=== PATIENT | female | born 1955 | race African-American/Black ===

== ENCOUNTER 2024-11-30 12:18 | Outpatient (CLI) | payer OTHER, MEDICARE, SELFPAY ==
--- NOTE | ~2024-11-30 | XR_ITS ---
EXAMINATION: XR chest 2V DATE: 11/30/2024 13:16 INDICATION: Pedal edema TECHNIQUE: PA and lateral views of the chest were obtained. COMPARISON: None FINDINGS: Mild increased interstitial pattern at the bilateral lung bases consistent with mild pulmonary edema. No focal airspace opacities, pleural effusion or pneumothorax. The cardiomediastinal silhouette is n ormal. Mild to moderate thoracic spondylosis with minimal anterior wedging of a few mid thoracic vert ebral bodies. IMPRESSION: 1. Mild interstitial pattern at the bilateral lung bases consistent most likely related mild pulmonar y edema with differential including atelectasis or pneumonia. Reviewed, dictated and finalized at location A. IMPRESSION: 1. Mild interstitial pattern at the bilateral lung bases consistent most likely related mild pulmonary edema with differential including atelectasis or pneumo abad.
--- OUTSIDE RECORDS SUMMARY | 2024-11-30 12:44 | XMS_ITS | Clinical Summary ---
Author Organization [facility] Address [address] [place] [address] Care Team Providers Care Drum Drier Name Role Phone None, Provider MD Primary Care Provider Unavaila ble Allergies No known active allergies Medications HYDROcodone-acet aminophen (NORCO) 5-325 MG tabletIndication s:Acute Pain < 3 Day Supply Take 1 tablet by mouth every 8 (eight) hours as needed for Pain. 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 Gender Identity Not on file Sexual Orientation Not on file Last Filed Vital Signs Vital Sign Reading Time Taken Comments Blood Pressure 147/87 07/27/2023 1:30 PM COMMUNICATIONS MAINTAINER Pulse 90 07/27/2023 1:30 PM COMMUNICATIONS MAINTAINER Temperature 36.3 C (97.3 F) 07/27/2023 2:08 PM COMMUNICATIONS MAINTAINER Respiratory Rate 16 07/27/2023 1:30 PM COMMUNICATIONS MAINTAINER Oxygen Saturation 100% 07/27/2023 1:30 PM COMMUNICATIONS MAINTAINER Inhaled Oxygen Concentration - - Weight 95.3 kg (210 lb) 07/27/2023 1:30 PM COMMUNICATIONS MAINTAINER Height 175.3 cm (5' 9 ) 07/27/2023 1:30 PM COMMUNICATIONS MAINTAINER Body Mass Index 31.01 07/27/2023 1:30 PM COMMUNICATIONS MAINTAINER Plan of Treatment Health Maintenance Due Date Last Done Comments Colorectal Cancer Screening Colonoscopy (10 Years) 1956 Hepatitis C 1974 DTaP, Tdap and Td Vaccines ( 1 - Tdap) 1975 Pneumococcal Vaccine: 50+ Years (1 of 2 - PCV) 1975 Mammogram Screening 1996 Zoster Vaccines (1 of 2) 2006 Dexa Scan (General) 2021 COVID-19 Vaccine (3 - 2023-2 5 season) 2024 12/31/2020, 12/03/2020 RSV Immunization or 60+ Years (1 - 1-dose 75+ series) 2031 Meningococcal B Vaccine Aged Out No l onger eligible based on patient's age to complete this topic Meningococcal Vaccine Aged Out No britt solomon eligible based on patient's age to complete this topic RSV Immunizations Under 20 Months Aged Out No longer eligible b ased on patient's age to complete this topic Insurance [employer] Care Teams Drum Drier Relationship Specialty Start Date End Date None, Provider, MD PCP - General UNKNOWN PHYSICIAN SPECIALTY 07/27/23
--- OUTSIDE RECORDS SUMMARY | 2024-11-30 12:44 | XMS_ITS | Data Portability ---
Author Organization [place] [facility], Main Office Address [address] [place] [address] Care Team Providers Care Access Tech Name Role Phone SAV CORONADO Primary Care Provider SAV CORONADO Referring Provider Assessment Encounter Date Assessment Date Assessment LastModified by Organization Details LastModified Time 01/07/2023 01/07/2023 Assessment: Nicotine smoke: 1 ppd 1974-present (quit 4 years in between) =44 pack years Cough Dyspnea RML nodule Atelectasis Plan: The following were reviewed and explained to the patient: primary care/referral note Chest 1 view 05/27/22 emphysema Chest 2 views 12/14/22 pulmonary [address] congestion Chest CT 12/14/22 BLL atelectasis, RML atelectasis/pneumo abad, 3 mm RML nodule Incentive spirometer x 5 minutes every 2 hours while awake to reverse and prevent further atelectasis. Nicotine cessation counseling provided for 4 minutes. [place] for quitting nicotine include getting ready, getting support and encouragement, learning new skills and behaviors and being prepared to handle slips. Tips for dealing with cravings provided. Prevention of subsequent illnesses from nicotine addiction discussed. Comorbidities include but are not limited to hypertension, cerebrovascular disease, coronary heart disease, congestive heart failure, hyperlipidemia, COPD/asthma, peptic ulcer disease, esophagitis/gastri tis, and osteoporosis. Therapy options offered include: Quitting by total abstinence Receiving nicotine replacement therapy Undergoing hypnosis Filling a bupropion or varenicline prescription Enrolling in Quit For Life program Registering at [email or web address] Making a call to 4-414-BHUX-NOW ( ). A strong, clear, personalized message was given to the patient to quit smoking. The patient was urged to set a quit date. We discussed patient's barriers to quitting and I will be of assistance when patient is ready to quit. I encouraged patient to inform friends and family of plans to quit with a request for support. I encouraged the patient to remove all cigarettes from the environment. We reviewed any previous quit attempts and lessons learned from them. I encouraged total abstinence from smoking and advised the patient that drinking alcohol and/or associating with other smokers are associated with failure or relapse. Patient can enroll in [facility]'s smoking cessation class through Iris Cantu RN at . Enrollment is free and classes are held every wednesday of the month from 1:30 pm to 2:30 pm at the conference room next to the cafeteria on the ground floor. Differential diagnoses for pulmonary nodule: 1. malignant tumor 2. benign tumor 3. inflammatory processes 4. infectious process (viral, atypical bacterial, fungal, atypical mycobacterial) The Fleischner Society pulmonary nodule recommendations below pertain to the follow-up and management of indeterminate pulmonary nodules detected incidentally on CT and are published by the Fleischner Society. The guideline does not apply to lung cancer screening, patients younger than 35 years, or patients with a history of primary cancer or immunosuppression. These recommendations reflect the 2017 revision 4, which supersedes prior versions published in 2005 and 2013. Single solid nodule <6 mm (<100 mm3) *low-risk patients: no routine follow-up required *high-risk patients: optional CT at 12 months (particularly with suspicious nodule morphology and/or upper lobe location) Single solid nodule 6-8 mm (100-250 mm3) *low-risk patients: CT at 6-12 months, then consider CT at 18-24 months *high-risk patients: CT at 6-12 months, then CT at 18-24 months Single solid nodule >8 mm (>250 mm3) *low-risk and high-risk patients: consider CT at 3 months, PET/CT, or tissue sampling Cough/Dyspnea workup will be done as follows: Respiratory allergen panel for [facility] Serum IgE Serum total IgG, IgG1, IgG2, IgG3, IgG4 Uroso-3-[id number] n phenotype and level TB stimulated gamma interferon B-type natriuretic peptide (BNP) Eosinophil count Complete pulmonary function testing (PFT) Continue albuterol HFA as needed. Minimize albuterol nebs as needed. Minimize ipratropium nebs as needed. Continue Anoro Ellipta once daily. The patient does not know how to accurately administer the inhalers. Today, the patient was shown how to take these medications. The proper technique for delivering these medications was instructed. The patient expressed a clear understanding and demonstrated back how to use these medications. Without the proper technique, the patient will not reap the benefits of these medications as the contents will not reach the lower airways as intended to be. Adherence to therapy is advocated. Nonadherence may lead to treatment failure, further progression of the condition, and other complications. Hospitals admissions are often the result of individuals not taking prescription medications accurately. Alternatively, greater adherence to medication regimens have shown to lower rates of hospitalization and decrease total medical costs in patients with chronic medical conditions. Advocated influenza vaccination annually and pneumonia vaccination ROSS. Advocated weight loss through diet and exercise. Patient's ideal body weight according to height and gender is up to 155 lbs. Encouraged patient to adjust caloric intake to maintain/achieve ideal body weight, emphasizing on fruits, vegetables, whole grains, and fat-free or low-fat products. These include lean meats, poultry, fish, beans, eggs, and nuts and foods that are low in saturated fats, trans-fats, cholesterol, salt (sodium), and glycemic index. Stressed the importance of regular exercise up to the patient's capacity limits. In this case, we recommend 20 min daily walking, 2 days a week of resistance training. Patient to monitor BP daily and bring records to PCP for further management. Follow-up: 1 week after PFT Not available 01/07/2023 16:00:42 03/10/2023 03/10/2023 Assessment: Nicotine smoke: 1 ppd 1974-present (quit 4 years in between) =44 pack years Mod COPD 3 mm RML nodule Atelectasis Elevated BNP Plan: The following were reviewed and explained to the patient: Chest 1 view 05/27/22 emphysema Chest 2 views 12/14/[address] pulmonary [address] congestion Chest CT 12/14/22 BLL atelectasis, RML atelectasis/pneumo abad, 3 mm RML nodule Lab data 01/07/23 elevated BNP PFT 03/10/23 FEV1 1.11 L (54%) Continue incentive spirometer x 5 minutes every 2 hours while awake to reverse and prevent further atelectasis. Nicotine cessation counseling provided. [place] for quitting nicotine include getting ready, getting support and encouragement, learning new skills and behaviors and being prepared to handle slips. Tips for dealing with cravings provided. Prevention of subsequent illnesses from nicotine addiction discussed. Comorbidities include but are not limited to hypertension, cerebrovascular disease, coronary heart disease, congestive heart failure, hyperlipidemia, COPD/asthma, peptic ulcer disease, esophagitis/gastri tis, and osteoporosis. Therapy options offered include: Quitting by total abstinence Receiving nicotine replacement therapy Undergoing hypnosis Filling a bupropion or varenicline prescription Enrolling in Quit For Life program Registering at [email or web address] Making a call to 3-951-QRBP-NOW ( ). A strong, clear, personalized message was given to the patient to quit smoking. The patient was urged to set a quit date. We discussed patient's barriers to quitting and I will be of assistance when patient is ready to quit. I encouraged patient to inform friends and family of plans to quit with a request for support. I encouraged the patient to remove all cigarettes from the environment. We reviewed any previous quit attempts and lessons learned from them. I encouraged total abstinence from smoking and advised the patient that drinking alcohol and/or associating with other smokers are associated with failure or relapse. Patient can enroll in [facility]'s smoking cessation class through Iris Cantu RN at . Enrollment is free and classes are held every wednesday of the month from 1:30 pm to 2:30 pm at the conference room next to the cafeteria on the ground floor. Differential diagnoses for pulmonary nodule: 1. malignant tumor 2. benign tumor 3. inflammatory processes 4. infectious process (viral, atypical bacterial, fungal, atypical mycobacterial) The Fleischner Society pulmonary nodule recommendations below pertain to the follow-up and management of indeterminate pulmonary nodules detected incidentally on CT and are published by the Fleischner Society. The guideline does not apply to lung cancer screening, patients younger than 35 years, or patients with a history of primary cancer or immunosuppression. These recommendations reflect the 2017 revision 4, which supersedes prior versions published in 2005 and 2013. Single solid nodule <6 mm (<100 mm3) *low-risk patients: no routine follow-up required *high-risk patients: optional CT at 12 months (particularly with suspicious nodule morphology and/or upper lobe location) Single solid nodule 6-8 mm (100-250 mm3) *low-risk patients: CT at 6-12 months, then consider CT at 18-24 months *high-risk patients: CT at 6-12 months, then CT at 18-24 months Single solid nodule >8 mm (>250 mm3) *low-risk and high-risk patients: consider CT at 3 months, PET/CT, or tissue sampling Repeat chest CT one week before return. Pulmonary rehabilitation may be included in the management of patients with chronic obstructive pulmonary disease (COPD). For respiratory diseases different from COPD, there have been no formal statements regarding patient selection. Pulmonary rehabilitation consists of assessment, exercise, education, and emotional support. It covers the goals of rehabilitation, the techniques of breathing, the necessity of nicotine cessation, the strategies to deal with panic attacks, the rationale of pulmonary medications, and the importance of nutrition. As the patient learns to live with his/her pulmonary condition through exercise and education, the patient will regain confidence with his/her abilities and feel improvement in his/her overall quality of life. The patient's FEV1 is 54%. The patient will be enrolled in pulmonary rehabilitation pending insurance coverage. General concepts of pulmonary rehabilitation were explained. Educational video was shown. Continue albuterol HFA as needed. Minimize albuterol nebs as needed. Minimize ipratropium nebs as needed. Resume Anoro Ellipta 62.5/25 mcg 1 inhalation daily. The patient does not know how to accurately administer the inhalers. Today, the patient was shown how to take these medications. The proper technique for delivering these medications was instructed. The patient expressed a clear understanding and demonstrated back how to use these medications. Without the proper technique, the patient will not reap the benefits of these medications as the contents will not reach the lower airways as intended to be. Adherence to therapy is advocated. Nonadherence may lead to treatment failure, further progression of the condition, and other complications. Hospitals admissions are often the result of individuals not taking prescription medications accurately. Alternatively, greater adherence to medication regimens have shown to lower rates of hospitalization and decrease total medical costs in patients with chronic medical conditions. Advocated influenza vaccination annually and pneumonia vaccination ROSS. Advocated weight loss through diet and exercise. Patient's ideal body weight according to height and gender is up to 155 lbs. Encouraged patient to adjust caloric intake to maintain/achieve ideal body weight, emphasizing on fruits, vegetables, whole grains, and fat-free or low-fat products. These include lean meats, poultry, fish, beans, eggs, and nuts and foods that are low in saturated fats, trans-fats, cholesterol, salt (sodium), and glycemic index. Stressed the importance of regular exercise up to the patient's capacity limits. In this case, we recommend 20 min daily walking, 2 days a week of resistance training. Patient to monitor BP daily and bring records to PCP for further management. Follow-up: 1 week after 2-D echocardiogram and chest CT Not available 03/10/2023 11:07:29 08/12/2023 08/12/2023 Assessment: Ex-nicotine smoke: 1 ppd [id number] (quit 4 years in between) =45 pack years Atelectasis 3 mm RML nodule Mod COPD PASP 51 mmHg Right HFpEF 65% Plan: The following were reviewed and explained to the patient: Chest 1 view 05/27/22 emphysema Chest 2 views 12/14/22 pulmonary vascular congestion Chest 1 view 08/03/[address] 12/14/22 BLL atelectasis, RML atelectasis/pneumo abad, 3 mm RML nodule 2-D echocardiogram 12/14/22 EF 65%, PASP 51 mmHg Lab data 01/07/23 elevated BNP PFT 03/10/23 FEV1 1.11 L (54%) [facility] discharge summary 07/19/23 [facility] discharge summary 08/07/[address] Kushal Angulo of [facility] as scheduled on 08/17/23 at 9 am for consultation. Continue incentive spirometer x 5 minutes every 2 hours while awake to reverse and prevent further atelectasis. Differential diagnoses for pulmonary nodule: 1. malignant tumor 2. benign tumor 3. inflammatory processes 4. infectious process (viral, atypical bacterial, fungal, atypical mycobacterial) The Fleischner Society pulmonary nodule recommendations below pertain to the follow-up and management of indeterminate pulmonary nodules detected incidentally on CT and are published by the Fleischner Society. The guideline does not apply to lung cancer screening, patients younger than 35 years, or patients with a history of primary cancer or immunosuppression. These recommendations reflect the 2017 revision 4, which supersedes prior versions published in 2005 and 2013. Single solid nodule <6 mm (<100 mm3) *low-risk patients: no routine follow-up required *high-risk patients: optional CT at 12 months (particularly with suspicious nodule morphology and/or upper lobe location) Single solid nodule 6-8 mm (100-250 mm3) *low-risk patients: CT at 6-12 months, then consider CT at 18-24 months *high-risk patients: CT at 6-12 months, then CT at 18-24 months Single solid nodule >8 mm (>250 mm3) *low-risk and high-risk patients: consider CT at 3 months, PET/CT, or tissue sampling Repeat chest CT ROSS. Pulmonary rehabilitation may be included in the management of patients with chronic obstructive pulmonary disease (COPD). For respiratory diseases different from COPD, there have been no formal statements regarding patient selection. Pulmonary rehabilitation consists of assessment, exercise, education, and emotional support. It covers the goals of rehabilitation, the techniques of breathing, the necessity of nicotine cessation, the strategies to deal with panic attacks, the rationale of pulmonary medications, and the importance of nutrition. As the patient learns to live with her pulmonary condition through exercise and education, the patient will regain confidence with her abilities and feel improvement in her overall quality of life. The patient's FEV1 is 54%. The patient will be re-enrolled in pulmonary rehabilitation pending insurance coverage. General concepts of pulmonary rehabilitation were explained. Continue albuterol HFA as needed. Discontinue albuterol nebs as needed. Discontinue ipratropium nebs as needed. Change Anoro Ellipta 62.5/25 mcg to Trelegy 100/62.5/25 mcg 1 inhalation daily. The patient does not know how to accurately administer the inhalers. Today, the patient was shown how to take these medications. The proper technique for delivering these medications was instructed. The patient expressed a clear understanding and demonstrated back how to use these medications. Without the proper technique, the patient will not reap the benefits of these medications as the contents will not reach the lower airways as intended to be. Adherence to therapy is advocated. Nonadherence may lead to treatment failure, further progression of the condition, and other complications. Hospitals admissions are often the result of individuals not taking prescription medications accurately. Alternatively, greater adherence to medication regimens have shown to lower rates of hospitalization and decrease total medical costs in patients with chronic medical conditions. Advocated influenza vaccination annually and pneumonia vaccination ROSS. Advocated weight loss through diet and exercise. Patient's ideal body weight according to height and gender is up to 155 lbs. Encouraged patient to adjust caloric intake to maintain/achieve ideal body weight, emphasizing on fruits, vegetables, whole grains, and fat-free or low-fat products. These include lean meats, poultry, fish, beans, eggs, and nuts and foods that are low in saturated fats, trans-fats, cholesterol, salt (sodium), and glycemic index. Stressed the importance of regular exercise up to the patient's capacity limits. In this case, we recommend 20 min daily walking, 2 days a week of resistance training. Patient to monitor BP daily and bring records to PCP for further management. Follow-up: [address] Not available 08/12/2023 12:05:57 Plan of Treatment Reminders Order Date Submit Date Provider Last Modified By Organization Details Last Modified Time Details Appointments None recorded. Lab alpha-1-ant itrypsin (aat) phenotype, serum [address] [facility] (Lab), [address] [place], [address], 10:15:13 BNP (B-type natriuretic peptide), serum or plasma [address] [facility] (Lab), [address] [place], [address], 21:42:11 ige, total, serum [address] (Lab), [address] [place], [address], 11:38:13 tb (M tuberculosi s), ifn-gamma shelli, blood [address] (Lab), [address] [place], [address], 11:38:14 eosinophil count, manual, blood (OBS) [address] (Lab), [address] [place], [address], 3 11:38:14 igg subclasses 1+2+3+4, serum [address] (Lab), [address] [place], [address], 3 11:38:14 respiratory allergen panel - [facility] a [address] (Lab), [address] [place], [address], 3 11:38:14 respiratory allergen panel - [facility] b [address] (Lab), [address] [place], [address], 3 11:38:15 Referral pulmonary rehab referral 2023 024 [email or web address] 25 [facility], [address] [place], [address], 4 14:17:28 pulmonary rehab referral 2022 023 [email or web address] 25 [facility], [address] [place], [address], 3 14:37:25 Procedures None recorded. Surgeries None recorded. Imaging CT, chest, w/o contrast - 3 mm RML nodule no auth required 2023 024 [facility] ([facility]), [address] [place], [address], 4 11:34:21 CT, chest, w/o contrast - 3 mm RML nodule no auth required 2022 023 [email or web address] 25 [facility] ([facility]), [address] [place], [address], 3 14:21:22 US, echocardiog laurence, transthorac ic, complete, w/ color flow - no auth required 2022 [email or web address] ([facility]), [address] [place], [address], 3 14:21:22 Medication Orders albuterol sulfate HFA 90 mcg/actuati on aerosol inhaler 2023 024 [id number], [address] [place], [place], [id number], 4 11:55:12 Trelegy Ellipta 100 mcg-62.5 mcg-25 mcg powder for inhalation 2023 024 [facility] #[id number], [address] [place], [place], [id number], 4 11:55:11 albuterol sulfate HFA 90 mcg/actuati on aerosol inhaler 2022 023 [id number], [address] [place], [place], [id number], 3 11:00:25 Anoro Ellipta 62.5 mcg-25 mcg/actuati on powder for inhalation 2022 023 [id number], [address] [place], [place], [id number], 3 14:24:56 Patient TargetsNo targets recorded. Patient Instructions Encounter Date Encounter Id Patient Instructions Last Modified By Organization Details Last Modified Time 01/07/2023 [id number] complete PFT w/ post bronchodilator spirometry* ADILSON Not available 03/11/2023 13:18:11 Reason for Referral Pulmonary Rehab Referral for Moderate chronic obstructive pulmonary disease Referring Physician: Marquise Narvaez, Pulmonary Disease, Encounter Date: 03/10/2023 Pulmonary Rehab Referral for Moderate chronic obstructive pulmonary disease Referring Physician: Marquise Narvaez, Pulmonary Disease, Encounter Date: 08/12/2023 Results Created Date Observation Date Name Description Value Unit Range Abnormal Flag Note LastModifiedBy Organization Detail LastModifiedTime 12/24/19 23 12/14/2022 XR, chest , 1 view No observ ation record ed. Not Available 2022 10:04:08 12/24/19 23 12/14/2022 CT, chest , w/o contr ast No observ ation record ed. Not Available 2022 10:04:08 12/24/19 23 12/14/2022 CT, head + brain , w/o contr ast No observ ation record ed. [facility] Not Available 2022 09:58:43 12/24/19 23 12/14/2022 elect rocar diogr am No observ ation record ed. [facility] Not Available 2022 09:58:43 12/24/19 23 06/04/2022 XR, chest , 1 view No observ ation record ed. Not Available 2022 13:02:06 12/25/19 23 06/04/2022 XR, chest , 1 view No observ ation record ed. Not Available 2022 09:59:12 03/10/20 23 03/10/2023 6 minut e walk test* No observ ation record ed. [facility] Not Available 2022 18:29:01 03/11/20 23 03/10/2023 compl ete PFT w/ post [facility] hodil ator lennie metry * No observ ation record ed. [facility] ([facility]) [address] [place], [address], 03/11/2023 13:18:11 08/19/19 24 08/19/2023 CT, chest , w/o contr ast No observ ation record ed. [facility] [address] [place], [address], 09/15/2023 11:34:21 Result Notes None recorded. Problems Name Problem SNOMED Code Status Onset Date Resolution Date Notes Provider Name and Address Organization Details Recorded Time Trochanter ic bursitis of left hip 1773524871514 03 Active 2019 Not Available [facility] 3 17:45:33 Solitary nodule of lung 102292055 Active Not Available [facility] 3 17:45:33 Atelectasi s 30691825 Active 2022 Marquise Narvaez MD [address], [address] , [facility] 3 15:41:52 Moderate chronic obstructiv e pulmonary disease 693966553 Active 2022 Marquise Narvaez MD [address], [address] , [facility] 3 10:51:23 Notes:Medical History: Eosin ophils 100/uL IgE 12 IU/mL AAT PiMM 211 mg% Nicotine use RML nodule Obesity Hyperlipidemia HFpEF 65% PASP 51 mmHg Vit D deficiency Right 4th rib fracture Left hip bursitis Procedure History: T&A 1968 Tubal ligation 1982 Tongue lesion excision 2012 Left 2nd hammer toe surgery 2013 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 Procedures Surgical History Date Name Laterality Status Provider Name and Address Organization Details Recorded Time Tonsillectomy completed Aleena Mendez MA [facility] 01/07/2023 15:26:59 procedure on tongue completed Aleena Mendez MA [facility] 01/07/2023 15:27:05 Tubal Ligation completed Aleena Mendez MA [facility] 01/07/2023 15:27:17 hammer toe operation completed Aleena Mendez MA [facility] 01/07/2023 15:27:25 Imaging Results Imaging Date Name Status LastModified by Organization Details LastModified Time 12/14/2022 XR, chest, 1 view completed Informa tion not available 12/23/2022 10:04:08 12/14/2022 CT, chest, w/o contrast completed Information not available 12/23/2022 10:04:08 12/14/2022 CT, head + brain, w/o contrast completed [facility] Information not available 12/23/2022 09:58:43 12/14/2022 electrocardiogram completed [facility] Informa tion not available 12/23/2022 09:58:43 06/04/2022 XR, chest, 1 view completed Informa tion not available 12/23/2022 13:02:06 06/04/2022 XR, chest, 1 view completed Informa tion not available 12/24/2022 09:59:12 03/10/2023 6 minute walk test* completed [facility] Infor mation not available 03/10/2023 18:29:01 03/10/2023 complete PFT w/ post bronchodilator spirometry* completed [facility] ([facility]) [address] [place], [address], 03/11/2023 13:18:11 08/19/2023 CT, chest, w/o contrast completed [address] [place], [address], 09/15/2023 11:34:21 Procedure Notes None recorded. Medical Equipment None Reported. Allergies Allergen ID Allergen Name Allergen Category Reaction Reaction Severity Criticality Documentation Date Start Date Code Code System Note Provider Name and Address Organization Details Recorded Time 47953 Breztri medicatio n Not available Not available Not available 01/07/2023 55202 25 RxNorm Aleena Mendez MA [facility], [employer] 3 15:17:25 03565 Anoro medicatio n insomnia swelling Not available Not available Not available 03/31/2023 02564 20 RxNorm Marquise Narvaez MD [address] [facility] [address], [place], [address] , [employer] 3 14:25:36 Medications Name Sig Start Date Stop Date Status Note LastModified by Organization Details LastModified Time furosemide 40 mg tablet TAKE 1 TABLET BY MOUTH EVERY DAY DIRECTED active Not Available Not Available No t Available albuterol sulfate 2.5 mg/3 mL (0.083 %) solution for nebulizatio n 08/12 completed Not Available Not Available Not Available atorvastati n 10 mg tablet 01/07 completed Not Available Not Available Not Available azithromyci n 250 mg tablet TAKE 1 TABLET BY MOUTH EVERY DAY 08/12 completed Not Available Not Available Not Available hydrocodone 5 mg-acetamin ophen 325 mg tablet TAKE 1 TABLET BY MOUTH EVERY 8 HOURS NEEDED FOR PAIN OR ACUTE PAIN active Not Available Not Available No t Available ondansetron HCl 4 mg tablet 01/07 completed Not Available Not Available Not Available prednisone 20 mg tablet TAKE 1 TABLET BY MOUTH EVERY DAY 08/12 completed Not Available Not Available Not Available Tamiflu 75 mg capsule active Not Available Not Available N ot Available peg-electro lyte solution 420 gram oral solution 01/07 completed Not Available Not Available Not Available prednisone 10 mg tablets in a dose pack Take 1 tab by mouth, 3 times a day for 3 daysTake 1 tab by mouth 2 times a day for 2 daysTake 1 tab by mouth once a day for 1 day 12/23 completed Not Available Not Available Not Available prednisone 50 mg tablet 12/23 completed Not Available Not Available Not Available promethazin e 25 mg tablet 01/07 completed Not Available Not Available Not Available nicotine 21 mg/24 hr daily transdermal patch 08/12 completed Not Available Not Available Not Available montelukast 10 mg tablet TAKE 1 TABLET BY MOUTH EVERY DAY active Not Available Not Available No t Available furosemide 20 mg tablet 03/24 completed Not Available Not Available Not Available methylpredn isolone 4 mg tablets in a dose pack 01/07 completed Not Available Not Available Not Available albuterol sulfate HFA 90 mcg/actuati on aerosol inhaler Inhale 1 puff every 4 hours by inhalatio n route as needed. 2023 active Not Available Not Available Not Avai lable doxycycline hyclate 100 mg tablet 08/12 completed Not Available Not Available Not Available ipratropium bromide 0.02 % solution for inhalation 08/12 completed Not Available Not Available Not Available amoxicillin 875 mg-potassiu m clavulanate 125 mg tablet TK 1 T PO Q 12 H FOR 7 DAYS 12/23 completed Not Available Not Available Not Available Spiriva with HandiHaler 18 mcg and inhalation capsules Inhale 1 capsule every day by inhalatio n route for 30 days. 01/07 completed Not Available Not Available Not Available Vitamin D Take 1 500 mg. tablet bid 2015 active Not Available Not Available Not Avai lable Oysco 500/D 500 mg-5 mcg (200 unit) tablet TK 1 T PO BID active Not Available Not Available No t Available Symbicort 160 mcg-4.5 mcg/actuati on HFA aerosol inhaler INHALE 2 PUFFS BY MOUTH TWICE DAILY DIRECTED 08/12 completed Not Available Not Available Not Available Anoro Ellipta 62.5 mcg-25 mcg/actuati on powder for inhalation INHALE 1 PUFF BY MOUTH EVERY DAY 03/31 completed Not Available Not Available Not Available Trelegy Ellipta 100 mcg-62.5 mcg-25 mcg powder for inhalation Inhale 1 puff every day by inhalatio n route. 2023 active Not Available Not Available Not Avai lable Breztri Aerosphere 160 mcg-9mcg-4. 8mcg/actuat ion HFA aerosol inhaler 01/07 completed Not Available Not Available Not Available Vitals Date Recorded Body weight Body mass index (BMI) Body height Body temperature Heart rate Systolic blood pressure Diastolic blood pressure Provider Name and Address Organization Details Last Updated DateTime 3 29592.7 3 g 29.3 kg/m2 175.26 cm 98.2 [degF] 82 /min 118 mm[Hg] 74 mm[Hg] Aleena Mendez MA [place] [employer] [facility] [employer] 3 15:30:48 Date Recorded Oxygen saturation Oxygen saturation in Arterial blood by Pulse oximetry Heart rate Respiratory rate Provider Name and Address Organization Details Last Updated DateTime 01/07/2023 93 % 93 % 82 /min 15 /min Marquise Narvaez MD [address] [facility], [place], [address], [employer] 3 16:04:15 Date Recorded Body height Body mass index (BMI) Body weight Body temperature Systolic blood pressure Diastolic blood pressure Provider Name and Address Organization Details Last Updated DateTime 3 175.26 cm 30.1 kg/m2 62277.8 4 g 98.9 [degF] 138 mm[Hg] 80 mm[Hg] Aleena Mendez MA [employer] 3 10:47:41 Date Recorded Oxygen saturation Oxygen saturation in Arterial blood by Pulse oximetry Respiratory rate Heart rate Heart rate Provider Name and Address Organization Details Last Updated DateTime 3 97 % 97 % 15 /min 86 /min 86 /min Marquise Narvaez MD [address] [facility] [address], [place], [address], [employer] 3 11:01:59 Date Recorded Body height Body mass index (BMI) Body weight Body temperature Heart rate Systolic blood pressure Diastolic blood pressure Provider Name and Address Organization Details Last Updated DateTime 4 175.26 cm 28.4 kg/m2 06985.7 4 g 98.78 [degF] 78 /min 128 mm[Hg] 78 mm[Hg] Aleena Mendez MA [facility] 4 11:25:12 Date Recorded Oxygen saturation Oxygen saturation in Arterial blood by Pulse oximetry Heart rate Respiratory rate Provider Name and Address Organization Details Last Updated DateTime 08/12/2023 95 % 95 % 78 /min 14 /min Marquise Narvaez MD [address] [employer], [place], [address], [employer] 4 12:04:35 Social History Question Answer Notes LastModified by Organizat ion Details LastModified Time Tobacco Smoking Status Former Smoker Aleena Mendez MA null, [facility] 08/12/2023 11:22:23 What Is Your Level Of Alcohol Consumption? None Information not available 01/07/2023 What Is Your Level Of Caffeine Consumption? Occasional Information not available 01/07/2023 In The 14 Days Before Symptom Onset, Have You Had Close Contact With A Laboratory-confir med COVID-19 While That Case Was Ill? No Information not available 01/07/2023 In The 14 Days Before Symptom Onset, Have You Had Close Contact With A Person Who Is Under Investigation For COVID-19 While That Person Was Ill? No Information not available 01/07/2023 What Type Of Diet Are You Following? REGULAR Information not available 01/07/2023 Do You Have An Electrostatic Air Filter? 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 No Information not available 01/07/2023 Do You Have A Humidifier? Yes Information not available 01/07/2023 Do You Have Moisture Problems In Your Home? No Information not available 01/07/2023 What Was The Date Of Your Most Recent Tobacco Screening? 08/12/2023 Information not available 08/12/2023 What Is Your Current Pack Years? 30ormorepackye ars Information not available 01/07/2023 Do You Have Any Pets? No Information not available 01/07/2023 Do You Use Your Seat Belt Or Car Seat Routinely? Yes Information not available 01/07/2023 Do You Have Smoke And Carbon Monoxide Detectors In Your Home? No Information not available 01/07/2023 Are You Passively Exposed To Smoke? Yes Information no t available 01/07/2023 How Much Tobacco Do You Smoke? No Information not available 08/12/2023 Do You Feel Stressed (tense, Restless, Nervous, Or Anxious, Or Unable To Sleep At Night)? [id number] Information not available 01/07/2023 Do You Use Any Illicit Or Recreational Drugs? No Information not available 01/07/2023 Do You Use Sunscreen Routinely? No Information not available 01/07/2023 Have You Recently Traveled Abroad? No Information not available 01/07/2023 Do You Have Any Dietary Restrictions? No Information not available 01/07/2023 Sex: Unknown Functional Status Question Answer Note LastModified by Organizat ion Details LastModified Time What is your exercise level? Occasional Information not available 01/07/2023 Mental Status None recorded. Family History Nothing Reported. Medical History No medical history recorded. Gynecological HistoryNo gynecological history recorded. Obstetrics History GPAL:G 0 P 0 0 0 0 Past Encounters Encounter ID Performer Location Encounter Start Date Encounter Closed Date Diagnosis/Indication Diagnosis SNOMED-CT Code Diagnosis ICD10 Code Diagnosis Note [id number] MD [place] [id number] 01/07/2023 14:57:52 01/11/2023 08:54:14 Atelectasis 68563581 J98.11 Smoker 70303645 F17.218 F17.219 Z87.891 Dyspnea on exertion 6084 5006 R06.09 R05.9 T78.40XA D89.9 [id number] MD [place] [id number] 03/10/2023 10:24:01 03/10/2023 15:55:47 Atelectasis 27341488 J98.11 Smoker 03920131 F17.218 F17.219 Z87.891 Moderate c hronic obstructive pulmonary disease 730844117 J44.9 Solitary n odule of lung 673792738 R91.1 Dyspnea on exertion 6084 5006 R06.09 R05.9 T78.40XA D89.9 [id number] MD [place] [id number] 0 08/12/2023 10:29:57 08/13/2023 08:26:34 Atelectasis 82550131 J98.11 Moderate c hronic obstructive pulmonary disease 331562624 J44.9 Solitary n odule of lung 498203853 R91.1 Health Concerns Section Related Observation LastModified by Organization Detai ls LastModified Time None Recorded Concern Status LastModified by Organization Details LastModified Time None Recorded Advance Directives Directive None Recorded Payers Encounter Date Sequence Insurance Name Policy Number Policy Rodriguez Covered Member ID Rodriguez Member ID Guarantor Name 01/07/2023 1 [employer] [facility] [id number] Cristal Coleman [id number] Cristal Coleman 03/10/2023 1 [facility] [id number] Cristal Coleman [id number] Cristal Coleman 08/12/2023 1 [facility] [id number] Cristal Coleman [id number] Cristal Coleman Notes Date Note Type Note Provider Name and Address Organization Details Recorded Time 01/07/2023 text/html Primary care/Referring provider: Sav Coronado MD Patient is here to go over shortness of breath evaluation/managemen t. Initial development of shortness of breath: 2008 Duration of shortness of breath: 14 years Condition of shortness of breath: worsening Timing of shortness of breath: none Frequency: up to 5 times a day Limits activities: yes Aggravating factors: walking Alleviating factors: rest Modified [employer] [place] (mMRC) Dyspnea Scale - Grade 2 Grade 0 I only get breathless with strenuous exercise . Grade 1 I get short of breath when hurrying on the level or walking up a slight hill . Grade 2 I walk slower than people of the same age on the level because of breathlessness or have to stop for breath when walking at my own pace on the level . Grade 3 I stop for breath after walking about 100 yards or after a few minutes on the level . Grade 4 I am too breathless to leave the house or I am breathless when dressing . Treatment history: albuterol HFA as needed since lbuterol nebs as needed since 09/2022ipratropium nebs as needed since 12/2022 Spiriva Handihaler 1 capsule daily 2016 only Symbicort 160/4.5 mcg 2 puffs BID 2018 onlyBreztri 160/9/4.8 mcg 2 puffs BID 9871-7261 (severe thrush) Anoro Ellipta once daily since 11/2022 Other symptoms: Drooling: no Dysarthria: no Neck pain: yes Odynophagia: no Dysphagia: no Weak mastication: no Facial weakness: no Nasal speech: no Protruding tongue: no Productive cough: no Wheezing: no Chest tightness: yes Orthopnea: no Frequent throat clearing or swallowing: no Palpitations: no Heartburn: no Edema: yes Environmental exposures: Nicotine smoke: 1 ppd 1975-present (quit 4 years in between) =44 pack years [place]: no Dye: no Dust mites: yes Mold: no Damp basement: no Wood burning stove: no Animal dander: no Cockroaches: no Pollen: yes Arsenic: no Asbestos: no Beryllium: no Cadmium: no Chromium: no [place] smoke: no Diesel fumes: no Nickel: no Silica: no Soot: no EPWORTH SLEEPINESS SCALE (ESS) CHANCE OF DOZING SCORE 0 = would never doze 1 = slight chance of dozing 2 = moderate chance of dozing 3 = high chance of dozing SITUATION AND CHANCE OF DOZING Sitting and reading - 0 Watching television - 0 Sitting inactive in a public place (e.g. a theater or meeting) - 0 As a passenger in a car for an hour without a break - 0 Lying down to rest in the afternoon when circumstances permit - 0 Sitting and talking to someone - 0 Sitting quietly after lunch without alcohol - 0 In a car, while stopped for a few minutes in the traffic - 0 TOTAL SCORE 0 Subjectively, patient has no chance of dozing. Marquise Narvaez MD [address] [place] [address], [address], [place] [facility] 01/07/2023 16:11:05 03/10/2023 text/html Primary care/Referring provider: Sav Coronado MD CC: I don't like Symbicort. I used Anoro only for one month after I was discharged from the hospital. Patient is here to go over her lab data and PFT as part of her shortness of breath evaluation/managemen t. Initial development of shortness of breath: 2009Duration of shortness of breath: 14 yearsCondition of shortness of breath: stableTiming of shortness of breath: noneFrequency: up to 5 times a dayLimits activities: yesAggravating factors: walkingAlleviating factors: rest Modified [employer] [place] (mMRC) Dyspnea Scale - Grade 2Grade 0 I only get breathless with strenuous exercise .Grade 1 I get short of breath when hurrying on the level or walking up a slight hill .Grade 2 I walk slower than people of the same age on the level because of breathlessness or have to stop for breath when walking at my own pace on the level .Grade 3 I stop for breath after walking about 100 yards or after a few minutes on the level .Grade 4 I am too breathless to leave the house or I am breathless when dressing . Treatment history: albuterol HFA as needed since lbuterol nebs as needed since 09/2022ipratropium nebs as needed since 12/2022 Spiriva Handihaler 1 capsule daily 2015 onlySymbicort 160/4.5 mcg 2 puffs BID 2018 onlyBreztri 160/9/4.8 mcg 2 puffs BID 2137-2828 (severe thrush)Anoro Ellipta once daily 11/2022 - 12/2022 Other symptoms:Drooling: noDysarthria: noNeck pain: yesOdynophagia: noDysphagia: noWeak mastication: noFacial weakness: noNasal speech: noProtruding tongue: noProductive cough: noWheezing: noChest tightness: yesOrthopnea: noFrequent throat clearing or swallowing: noPalpitations: noHeartburn: noEdema: yes Environmental exposures:Nicotine smoke: 1 ppd 1974-present (quit 4 years in between) =44 pack yearsPaint: noDye: noDust mites: yesMold: noDamp basement: noWood burning stove: noAnimal dander: noCockroaches: noPollen: yesArsenic: noAsbestos: noBeryllium: noCadmium: noChromium: noCoal smoke: noDiesel fumes: noNickel: noSilica: noSoot: no EPWORTH SLEEPINESS SCALE (ESS) CHANCE OF DOZING SCORE0 = would never doze1 = slight chance of dozing2 = moderate chance of dozing3 = high chance of dozing SITUATION AND CHANCE OF DOZINGSitting and reading - 0Watching television - 0Sitting inactive in a public place (e.g. a theater or meeting) - 0As a passenger in a car for an hour without a break - 0Lying down to rest in the afternoon when circumstances permit - 0Sitting and talking to someone - 0Sitting quietly after lunch without alcohol - 0In a car, while stopped for a few minutes in the traffic - 0TOTAL SCORE 0Subjectively, patient has no chance of dozing. Marquise Narvaez MD [address] [facility], [place], [address], [place] [facility] [employer] [facility] 03/10/2023 11:08:21 08/12/2023 text/html Primary care/Referring provider: Sav Coronado MD Patient was lost to follow up since 02/2023. She was hospitalized in [facility] 07/16/23 to 07/19/23 for CHF and in [facility] 08/03/23 to 08/07/23 for COPD exacerbation. Patient is here to go over her COPD management. Initial development of shortness of breath: 2009Duration of shortness of breath: 15 yearsCondition of shortness of breath: stableTiming of shortness of breath: noneFrequency: up to 5 times a dayLimits activities: yesAggravating factors: walkingAlleviating factors: rest Modified [employer] [place] (mMRC) Dyspnea Scale - Grade 2Grade 0 I only get breathless with strenuous exercise .Grade 1 I get short of breath when hurrying on the level or walking up a slight hill .Grade 2 I walk slower than people of the same age on the level because of breathlessness or have to stop for breath when walking at my own pace on the level .Grade 3 I stop for breath after walking about 100 yards or after a few minutes on the level .Grade 4 I am too breathless to leave the house or I am breathless when dressing . Treatment history: albuterol HFA as needed since lbuterol nebs as needed since 09/2022ipratropium nebs as needed since 12/2022 Spiriva Handihaler 1 capsule daily 2015 onlySymbicort 160/4.5 mcg 2 puffs BID 2018 onlyBreztri 160/9/4.8 mcg 2 puffs BID [id number] (severe thrush)Anoro Ellipta 62.5/25 mcg once daily 11/2022 - 03/2023Trelegy Ellipta 100/62.5/25 mcg once daily since 03/2023 Other symptoms:Drooling: noDysarthria: noNeck pain: yesOdynophagia: noDysphagia: noWeak mastication: noFacial weakness: noNasal speech: noProtruding tongue: noProductive cough: noWheezing: noChest tightness: yesOrthopnea: noFrequent throat clearing or swallowing: noPalpitations: noHeartburn: noEdema: yes Environmental exposures:Nicotine smoke: 1 ppd 0342-9033 (quit 4 years in between) =45 pack yearsPaint: noDye: noDust mites: yesMold: noDamp basement: noWood burning stove: noAnimal dander: noCockroaches: noPollen: yesArsenic: noAsbestos: noBeryllium: noCadmium: noChromium: noCoal smoke: noDiesel fumes: noNickel: noSilica: noSoot: no EPWORTH SLEEPINESS SCALE (ESS) CHANCE OF DOZING SCORE0 = would never doze1 = slight chance of dozing2 = moderate chance of dozing3 = high chance of dozing SITUATION AND CHANCE OF DOZINGSitting and reading - 0Watching television - 2Sitting inactive in a public place (e.g. a theater or meeting) - 0As a passenger in a car for an hour without a break - 1Lying down to rest in the afternoon when circumstances permit - 2Sitting and talking to someone - 1Sitting quietly after lunch without alcohol - 0In a car, while stopped for a few minutes in the traffic - 0TOTAL SCORE 6Subjectively, patient has a slight chance of dozing. Marquise Narvaez MD [address] [place] [address], [place] [address], [place], [address], [place] [facility] 08/12/2023 12:06:11 OBGyn Episode No OBEpisode recorded.
--- OUTSIDE RECORDS SUMMARY | 2024-11-30 12:44 | XMS_ITS | Encounter Summary ---
Author Organization [facility] Healthcare Address [address] [place] [address] Care Team Providers Care Manager Business Systems Name Role Phone Juan Coronado MD Unavailable [phone] Nuha Piper MD Primary Care Provider [phone] Encounter Details Date Type Department Care Team (Late st Contact Info) Description 07/12/2024 Documentation [facility] Medical Group Hand Surgery [address] [facility] [address] [place] [address] Rosa Conner, [employer] [address] [facility] [address] [address] Social History Tobacco Use Types Packs/Day Years Used Date Smoking Tobacco: Every Day Cigarettes Smokeless Tobacco: Never AUDIT-C Answer Date Recorded Q1: How often do you have a drink containing alcohol? Never 06/13/2024 Q2: How many drinks containi ng alcohol do you have on a typical day when you are drinking? Patient does not drink Q3: How often do you have si x or more drinks on one occasion? Never 06/13/2024 Personal Safety Answer Date Recorded Have you ever been in or are you currently in a harmful physical or emotional relationship or is someone making you feel afraid or unsafe? Denies 06/13/2024 Comments No Sex and Gender Information Value Date Recorded Sex Assigned at Not on file Legal Sex Female 5:59 AM CDT Gender Identity Not on file Sexual Orientation Not on file documented as of this encounter Plan of Treatment Not on file documented as of this encounter Visit Diagnoses Not on filedocumented in this encounter Care Teams Manager Business Systems Relationship Specialty [place] [address] [place] [address] PCP - General Emergency Medicine 04/17/24 Juan Coronado MD [address] [place] [address] Referring Physician Internal Medicine 02/06/21 documented as of this encounter
--- OUTSIDE RECORDS SUMMARY | 2024-11-30 12:44 | XMS_ITS | Clinical Summary ---
Author Organization [facility] Address [address] [place] [address] Care Team Providers Care Supervisor Telephone Answering Service Name Role Phone Juan Coronado MD Unavailable Nuha Piper MD Primary Care Provider [phone] Allergies Active Allergy Reactions Criticality Noted Date Comments Albuterol Other (See comments) Low 04/17/2024 Budesonide-Formoterol Other (See comments) Medium 03/27 Yvycidixvu-Hyhemdiu-Qirpkdj rol Other (See comments) Low 04/17/2024 Umeclidinium-Vilanterol Other (See comments),Swelling Medium 04/17/2024 Medications albuterol HFA (PROVENTIL HFA,VENTOLIN HFA,PROAIR HFA) 90 mcg/actuation inhaler 1 Active predniSONE (DELTASONE) 20 mg tablet Take 3 tablets (60 mg) by mouth daily 12 tablet 3 Active Additional Information Patient not taking.Reported on 04/17/2024 Trelegy Ellipta 100-62.5-25 mcg inhaler Inhale 1 puff daily Active traMADoL (ULTRAM) 50 mg tablet Take 1 tablet (50 mg total) by mouth 3 (three) times a day as needed for pain 4 Active furosemide (LASIX) 40 mg tablet Take 1 tablet (40 mg total) by mouth daily Active traMADoL (ULTRAM) 50 mg tablet Take 1 tablet (50 mg total) by mouth every 6 (six) hours as needed for pain 15 tablet 4 Active traMADoL (ULTRAM) 50 mg tablet Take 1 tablet (50 mg total) by mouth every 6 (six) hours as needed for pain 15 tablet 4 Active Active Problems Problem Noted Date Diagnosed Date Trigger thumb of left hand 05/30/2024 Trigger finger of right thumb 04/17/2024 Trigger finger of left thumb 04/17/2024 Trigger thumb of right hand 04/17/2024 Hyperlipidemia 04/17/2024 Solitary pulmonary nodule 04/17/2024 Tobacco dependence syndrome 04/17/2024 Pulmonary hypertension 08/03/2023 Congestive heart failure 03/27/2023 Right ventricular dilation 12/15/2022 Bilateral impacted cerumen 02/06/2021 Hearing loss of left ear 02/06/2021 Surgical History Surgery Date Site/Laterality Comments TONSILLECTOMY CORRECTION HAMMER TOE Left TUBAL LIGATION TONGUE SURGERY lesion removed. Medical History Medical History Date Comments COPD (chronic obstructive pulmonary disease) (HC C) Trigger thumb of right hand 04/17/2024 Pulmonary hypertension (HCC) 08/03/2023 Bilateral impacted cerumen 02/06/2021 Hearing loss of left ear 02/06/2021 Trigger finger of right thumb 04/17/2024 Trigger finger of left thumb 04/17/2024 Congestive heart failure (HCC) 03/27/2023 Hyperlipidemia 04/17/2024 Right ventricular dilation 12/15/2022 Solitary pulmonary nodule 04/17/2024 Tobacco dependence syndrome 04/17/2024 Chronic bronchitis (HCC) Lung disease Social History Tobacco Use Types Packs/Day Years Used Date Smoking Tobacco: Every Day Cigarettes Smokeless Tobacco: Never Tobacco Cessation:Ready to Q uit: Not Asked; Counseling Given: Not Answered AUDIT-C Answer Date Recorded Q1: How often [...] on file Sexual Orientation Not on file Obstetrics History Last Filed Vital Signs Vital Sign Reading Time Taken Comments Blood Pressure 133/91 06/13/2024 9:15 AM SALES LEAD Pulse 75 06/13/2024 9:15 AM SALES LEAD Temperature 36.7 C (98 F) 06/13/2024 8:45 AM SALES LEAD Respiratory Rate 16 06/13/2024 9:15 AM SALES LEAD Oxygen Saturation 100% 06/13/2024 9:15 AM SALES LEAD Inhaled Oxygen Concentration - - Weight 85.7 kg (188 lb 14.4 oz) 05/30/2024 7:50 AM SALES LEAD Height 175.3 cm (5' 9 ) 05/30/2024 7:50 AM SALES LEAD Body Mass Index 27.9 05/30/2024 7:50 AM SALES LEAD Plan of Treatment Health Maintenance Due Date Last Done Comments Breast Cancer Screening-Mammogram 1956 Colon Cancer Screening-Colonoscopy 1955 Depression Screening 1956 Hepatitis C Screening 1956 Osteoporosis Screening-Bone Density Scan 1956 DTaP/Tdap/Td Vaccine (1 - Tdap) 1967 Hepatitis B Screening 1974 Pneumococcal vaccine 65+ (1 of 2 - PCV) 1975 Zoster Vaccine (1 of 2) 2006 Well Visit 65+ 2021 Influenza Vaccine (Season Ended) 2025 05/08/20 Fall Risk Assessment 05/30/2025 05/30/2024 Medical Devices Implanted Type Area School Age Program Teacher Device Identifier Shelf Expiration Date Model / Serial / Lot Pin Pin Left: Foot Insurance [facility] CHOICE PLUS CHOICE PLUS CHOICE PLUS WORKERS COMPENSATION GENERIC Care Teams Supervisor Telephone Answering Service Relationship Specialty [place] [address] [place] [id number] PCP - General Emergency Medicine 04/17/24 Juan Coronado MD [address] [place] [id number] Referring Physician Internal Medicine 02/06/21
--- OUTSIDE RECORDS SUMMARY | 2024-11-30 12:44 | XMS_ITS | Clinical Summary ---
Author Organization [facility] Address [address] [place] [phone] Phone Care Team Providers Care Photovoltaic Panel Installer Name Role Phone Unavailable Primary Care Provider Unavailabl e Allergies No known active allergies Medications montelukast (SINGULAIR) 10 mg tablet Take 10 mg by mouth daily at bedtime. 1 Active albuterol sulfate HFA 90 mcg/actuation aerosol inhaler Take 2 Puffs by inhalation every 6 hours as needed. 1 Active furosemide (LASIX) 40 mg tablet Take 40 mg by mouth daily. Active fluticasone-umecl idinium-vilantero l (Trelegy Ellipta) 100-62.5-25 mcg Disk with Device Take 1 Puff by inhalation daily. 60 Each 1 04/01/2023 2:37 PM CDT 3 Active guaiFENesin (ROBITUSSIN) 100 mg/5 mL solution Take 10 mL (200 mg) by mouth every 6 hours as needed to thin secretions. 236 mL 3 Active Lidocaine 4 % Adhesive Patch, Medicated Apply to back daily up to 12 hours within a 24 hour period. 12 Patch 3 Active aspirin (ECOTRIN EC) 81 mg Tablet, Delayed Release (E.C.) Take 81 mg by mouth daily. Active geriatric multivitamin with iron & minerals (UNICAP SENIOR) Tablet Take 1 Tablet by mouth daily. Active Active Problems Problem Noted Date Diagnosed Date Contusion of rib on left side 08/06/2023 Acute on chronic respiratory failure with hypoxia and hypercapnia 08/03/2023 Pulmonary hypertension 08/03/2023 Acute on chronic diastolic CHF (congestive heart failure) 03/30/2023 Acute hypercapnic respiratory failure 03/27/2023 Elevated troponin 03/27/2023 Congestive heart failure 03/27/2023 Acute respiratory failure with hypoxia and hyper capnia 12/15/2022 Low back pain 12/15/2022 Elevated blood-pressure read ing without diagnosis of hypertension 12/15/2022 Right ventricular dilation 12/15/2022 Hyperkalemia 12/15/2022 Acute metabolic encephalopathy 12/15/2022 COPD with exacerbation 12/14/2022 Tobacco use disorder 12/14/2022 Family History Medical History Relation Name Comments Heart Disease Father Colon Cancer Mother Diabetes Mother Heart Disease Mother Relation Name Status Comments Father Mother Social History Tobacco Use Types Packs/Day Years Used Date Smoking Tobacco: Every Day Cigarettes 1 50 Tobacco Cessation:Ready to Q uit: Not Asked; Counseling Given: Not Answered Alcohol Use Standard Drinks/Week Comments Not Currently 0 (1 standard drink = 0.6 oz pur e alcohol) Feeling Safe Answer Date Recorded Are you in a relationship wi th someone who hurts you emotionally and/or physically? No 08/03/2023 Food Insecurity Answer Date Recorded Social/Environmental Concerns No concerns Transportation Needs Answer Date Record ed Social/Environmental Concerns No concerns Housing Stability Answer Date Recorded Social/Environmental Concerns No concerns Utility Needs Answer Date Recorded Social/Environmental Concerns No concerns Comments No Sex and Gender Information Value Date Recorded Sex Assigned at Not on file Legal Sex Female 3:37 AM CDT Gender Identity Not on file Sexual Orientation Not on file Last Filed Vital Signs Vital Sign Reading Time Taken Comments Blood Pressure 141/91 08/07/2023 8:08 AM SNOW SHOVELER RN notified Pulse 84 08/07/2023 9:54 AM SNOW SHOVELER Temperature 37.1 C (98.8 F) 08/07/2023 8:08 AM SNOW SHOVELER Respiratory Rate 20 08/07/2023 9:54 AM SNOW SHOVELER Oxygen Saturation 92% 08/07/2023 9:54 AM SNOW SHOVELER Inhaled Oxygen Concentration - - Weight 87.1 kg (192 lb) 08/03/2023 8:53 AM SNOW SHOVELER Height 175.3 cm (5' 9 ) 08/03/2023 8:53 AM SNOW SHOVELER Body Mass Index 28.35 08/03/2023 8:53 AM SNOW SHOVELER Plan of Treatment Health Maintenance Due Date Last Done Comments DTAP/TDAP/TD VACCINES (1 - Tdap) 1975 PNEUMOCOCCAL VACCINE 50+ YEARS (1 of 2 - PCV) 07/17/19 75 BREAST CANCER SCREENING 1996 COLORECTAL SCREENING 2001 Colorectal Cancer Screening 2001 FIT-DNA Q 3 years 2001 FIT/FOBT Q 1 year 2001 Flex Sig/CT Colonography Q 5 years 2001 ZOSTER VACCINE (1 of 2) 2006 RSV VACCINE (60+ or ) (1 - Risk 60-74 years 1-dose series) 2016 OSTEOPOROSIS SCREENING 2021 INFLUENZA VACCINE (#1) 2024 Insurance [place] [id number] RX [employer] (INTERNAL) [facility] RX [employer] RX Member Subscriber Plan / Payer (Ef fective for All Dates) Name:Cristal Coleman Relation to Subscriber:Self Name:Cristal Coleman Payer ID:Not on file Group ID:[id number] Type:RX Medicare Part D Address: [address] Advance Directives For more information, please contact: [phone] * Full Code (Latest Code Status on File) Date Activated Date Inactivated Comments 08/03/2023 5:49 PM 08/07/2023 2:48 PM * Full Code Date Activated Date Inactivated Comments 03/27/2023 1:34 PM 04/01/2023 7:09 PM * Full Code Date Activated Date Inactivated Comments 12/14/2022 1:47 PM 12/18/2022 10:22 PM * Default Full Code - Needs Discussion Date Activated Date Inactivated Comments 12/14/2022 8:58 AM 12/14/2022 1:47 PM
--- OUTSIDE RECORDS SUMMARY | 2024-11-30 12:44 | XMS_ITS | Continuity of Care Document ---
Author Organization [facility] (Adult Med) Address [facility] [place] [address] Assessment No assessment recorded. Plan of Treatment Reminders Order Date Submit Date Provider Last Modified By Organization Details Last Modified Time Details Appointments None recorded. Lab erythrocyt e sedimentat ion rate by westergren method [address] [facility], [address] [place] [address], [facility] [address], [place], [address], 5 11:38:17 BNP (B-type natriureti c peptide), serum or plasma [address] [facility], [address] [place] [address], [facility] [address], [place], [address], 5 10:17:57 D-dimer, quant, plasma [address] [facility], [address] [place] [address], [facility] [address], [place], [address], 5 13:22:10 CMP, serum or plasma [address], [address] [place] [address], [facility] [address], [place], [address], 5 11:38:15 albumin/cr eatinine, mass ratio, urine [address] [facility], [address] [facility], [address], [place], [address], 11:38:14 Referral None recorded. Procedures None recorded. Surgeries None recorded. Imaging XR, chest 2024 025 [facility] (Radiology), [address] [place], [address], 5 17:00:39 Medication Orders prednisone 20 mg tablet 2024 025 [id number], [address] [place], [place], [id number], 16:58:47 Patient TargetsNo targets recorded. Patient InstructionsNo instructions recorded. Reason for Referral None Reported. Problems Name Problem SNOMED Code Status Onset Date Resolution Date Notes Provider Name and Address Organization Details Recorded Time Bronchitis 44485704 Active Not Available [facility] 4 08:37:44 Acute bronchitis 18536342 Active Not Available [facility] 4 08:37:44 Chronic obstructive pulmonary disease 23035831 Active Not Available [facility] 4 08:37:44 Tobacco dependence syndrome 68280296 Active Not Available [facility] 4 08:37:44 Food intolerance 91025791 Active Not Available [facility] 4 08:37:44 Solitary nodule of lung 191073312 Active Not Available [facility] 4 08:37:44 Hyperlipidemi a 29446896 Active Not Available [facility] 4 08:37:44 Notes:Some problems listed i n Documents: #[id number], #[id number], #[id number] could not be added to this patient's chart. Please review these documents and add these problems to the patient's chart manually as needed. Problem Notes None recorded. Procedures Surgical History Date Name Laterality Status Provider Name and Address Organization Details Recorded Time 02/17/20 12 Most Recent Mammogram completed Salima Young MA [place] - [facility] 11/06/2015 10:31:53 02/10/20 12 Date of Last Pap Smear completed Salima Young MA [facility] 11/06/2015 10:28:40 Tonsillectomy completed Gris Quintero MA [facility] 09/13/2014 10:15:49 Tubal Ligation completed Gris Quintero MA [facility] 09/13/2014 10:15:49 Other completed Gris Quintero MA [facility] 09/13/2014 10:15:49 Orthopedic Surgery completed Salima Young MA [facility] 11/06/2015 10:40:08 Imaging Results None recorded. Procedure Notes None recorded. Medical Equipment None Reported. Allergies Allergen ID Allergen Name Allergen Category Reaction Reaction Severity Criticality Documentation Date Start Date Code Code System Note Provider Name and Address Organization Details Recorded Time 088619 Symbicort medicatio n other moderate Not available 07/11/2019 31365 8 RxNorm magalys hewitt ing and heari ng issue s Chey Collins RN [facility], [facility] 9 17:46:45 494835 albuterol medicatio n Not available Not available Not available 02/20/2021 435 RxNorm Efren King MA [facility], [facility] 17:04:16 Medications Name Sig Start Date Stop Date Status Note LastModified by Organization Details LastModified Time furosemide 40 mg tablet TAKE 1 TABLET BY MOUTH EVERY DAY DIRECTED active Not Available Not Available No t Available nystatin 100,000 unit/mL oral suspension SWISH AND SWALLOW 5 ML BY MOUTH FOUR TIMES DAILY FOR 10 DAYS 11/29 completed Not Available Not Available Not Available albuterol sulfate 2.5 mg/3 mL (0.083 %) solution for nebulizatio n USE 3 ML VIA NEBULIZER THREE TIMES DAILY DIRECTED active Not Available Not Available No t Available atorvastati n 10 mg tablet Take 1 tablet every day by oral route at dinner for 30 days. 07/21 completed Not Available Not Available Not Available azithromyci n 250 mg tablet TAKE 2 TABLETS BY MOUTH FOR 1 DAY THEN TAKE 1 TABLET BY MOUTH EVERY DAY UNTIL GONE 11/29 completed Not Available Not Available Not Available hydrocodone 5 mg-acetamin ophen 325 mg tablet TAKE 1 TABLET BY MOUTH EVERY 8 HOURS NEEDED FOR PAIN OR ACUTE PAIN 01/24 /2024 completed Not Available Not Available Not Available ondansetron HCl 4 mg tablet 07/01 completed Not Available Not Available Not Available prednisone 20 mg tablet one tab po bid for four days, then one tab po q d. Take with food 2024 active Not Available Not Available Not Avai lable peg-electro lyte solution 420 gram oral solution 01/30 completed Not Available Not Available Not Available tramadol 50 mg tablet one tab po tid prn pain 08/30 completed Not Available Not Available Not Available meloxicam 7.5 mg tablet TAKE 1 TO 2 TABLETS BY MOUTH EVERY DAY WITH FOOD NEEDED FOR PAIN 08/30 completed Not Available Not Available Not Available Guaiatussin AC 10 mg-100 mg/5 mL oral liquid 07/21 completed Not Available Not Available Not Available oseltamivir 75 mg capsule 10/20 completed Not Available Not Available Not Available prednisone 50 mg tablet 05/22 completed Not Available Not Available Not Available promethazin e 25 mg tablet 01/30 completed Not Available Not Available Not Available nicotine 21 mg/24 hr daily transdermal patch 01/30 completed Not Available Not Available Not Available montelukast 10 mg tablet TAKE 1 TABLET BY MOUTH EVERY DAY 2024 active Not Available Not Available Not Avai lable furosemide 20 mg tablet TAKE 1 TABLET BY MOUTH EVERY DAY 07/14 completed Not Available Not Available Not Available levofloxaci n 750 mg tablet 07/21 completed Not Available Not Available Not Available methylpredn isolone 4 mg tablets in a dose pack FOLLOW PACKAGE DIRECTION S 07/14 completed Not Available Not Available Not Available albuterol sulfate HFA 90 mcg/actuati on aerosol inhaler INHALE 2 PUFFS BY MOUTH FOUR TIMES DAILY NEEDED active Not Available Not Available No t Available doxycycline hyclate 100 mg tablet 01/30 completed Not Available Not Available Not Available ipratropium bromide 0.02 % solution for inhalation USE 2.5 ML VIA NEBULIZER EVERY 6 HOURS DIRECTED 08/30 completed Not Available Not Available Not Available amoxicillin 875 mg-potassiu m clavulanate 125 mg tablet 07/21 completed Not Available Not Available Not Available amoxicillin 500 mg-potassiu m clavulanate 125 mg tablet Take 1 tablet every 12 hours by oral route with meals for 7 days. 10/20 completed Not Available Not Available Not Available Spiriva with HandiHaler 18 mcg and inhalation capsules 07/21 completed Not Available Not Available Not Available Symbicort 160 mcg-4.5 mcg/actuati on HFA aerosol inhaler INHALE 2 PUFFS BY MOUTH TWICE DAILY DIRECTED 01/30 completed Not Available Not Available Not Available Zaeb Allergy 180 mg tablet Take 1 tablet every day by oral route. 01/30 completed Not Available Not Available Not Available Celia Jaimes [facility] spacer USE DIRECTED active Not Available Not Available No t Available calcium 600 mg (as carbonate)- vitamin D3 20 mcg (800 unit) tablet Take 1 tablet twice a day by oral route for 30 days. 07/21 completed Not Available Not Available Not Available Anoro Ellipta 62.5 mcg-25 mcg/actuati on powder for inhalation INHALE 1 PUFF BY MOUTH EVERY DAY 01/30 completed Not Available Not Available Not Available Spiriva Respimat 2.5 mcg/actuati on solution for inhalation INHALE 2 PUFFS BY MOUTH EVERY DAY 05/16 completed Not Available Not Available Not Available Trelegy Ellipta 100 mcg-62.5 mcg-25 mcg powder for inhalation INHALE 1 PUFF BY MOUTH EVERY DAY active Not Available Not Available No t Available Breztri Aerosphere 160 mcg-9mcg-4. 8mcg/actuat ion HFA aerosol inhaler Inhale 2 puffs twice a day by inhalatio n route around the clock for 30 days. 11/25 completed Not Available Not Available Not Available Paxlovid 300 mg (150 mg x 2)-100 mg tablets in a dose pack TK 2 NIRMATREL VIR TS AND 1 RITONAVIR T TOGETHER PO BID FOR 5 DAYS 05/01 completed Not Available Not Available Not Available Vitals Date Recorded Body height Body mass index (BMI) Body weight Oxygen saturation Oxygen saturation in Arterial blood by Pulse oximetry Heart rate Body temperature Systolic blood pressure Diastolic blood pressure Provider Name and Address Organization Details Last Updated DateTime 5 168.91 cm 31.8 kg/m2 40893.4 7 g 94 % 94 % 71 /min 97.8 [degF] 118 mm[Hg] 78 mm[Hg] Jessicaradha Wilson [place] [facility] 16:26:48 Social History Question Answer Notes LastModified by Organizat ion Details LastModified Time Tobacco Smoking Status Current Some Day Smoker quite 07/26/23 Jessica Wilson MA null, [place] - [facility] 11/29/2024 16:25:17 Do You Have An Advance Directive? No Information not available 11/06/2015 What Is Your Level Of Alcohol Consumption? None Information not available 11/06/2015 Are You Blind Or Do You Have Difficulty Seeing? No Information not available 08/18/2023 Is Blood Transfusion Acceptable In An Emergency? Yes Information not available 11/06/2015 What Is Your Level Of Caffeine Consumption? Heavy Information not available 11/06/2015 How Much Tobacco Do You Chew? None Information not available 11/06/2015 Are You Currently Employed? No Information not available 11/06/2015 Are You Deaf Or Do You Have Serious Difficulty Hearing? No Information not available 08/18/2023 What Type Of Diet Are You Following? REGULAR Information not available 11/06/2015 Which Illicit Or Recreational Drugs Have You Used? None Information not available 11/06/2015 Do You Or Have You Ever Used E-cigarettes Or Vape? 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 No Information not available 03/19/2023 Live Alone Or With Others? With Others Information not available 11/06/2015 What Was The Date Of Your Most Recent Tobacco Screening? 11/29/2024 Information not available 11/29/2024 How Many Children Do You Have? 4 Information not available 11/06/2015 Performs Monthly Self-breast Exam? Yes Information not available 11/06/2015 What Is Your Relationship Status? Information not available 11/06/2015 Do You Use Your Seat Belt Or Car Seat Routinely? Yes Information not available 07/14/2023 Seat Belts Used Routinely Yes Information not available 11/06/2015 Are You Sexually Active? No Information not available 11/06/2015 Do You Have Smoke And Carbon Monoxide Detectors In Your Home? No Information not available 03/19/2023 At What Age Did You Start Smoking Tobacco? 12 Information not available 11/06/2015 Do You Or Have You Ever Used Smokeless Tobacco? Never Used Smokeless Tobacco Information not available 02/20/2022 How Much Tobacco Do You Smoke? 0.5 PPD Under A Pack A Day Information not available 04/14/2023 General Stress Level Low Information not available 11/06/2015 Do You Feel Stressed (tense, Restless, Nervous, Or Anxious, Or Unable To Sleep At Night)? [id number] Information not available 07/14/2023 Do You Use Any Illicit Or Recreational Drugs? No Information not available 03/19/2023 Do You Use Sunscreen Routinely? No Information not available 11/06/2015 Has Tobacco Cessation Counseling Been Provided? Yes [email or web address] Information not available 05/22/2022 On What Date Was Tobacco Cessation Counseling Provided? 11/29/2024 Information not available 11/29/2024 How Many Years Have You Smoked Tobacco? 45 [email or web address] Information not available 09/13/2014 Do You Or Have You Ever Used Any Other Forms Of Tobacco Or Nicotine? Yes Information not available 02/20/2022 Sex: Female Functional Status Question Answer Note LastModified by Organization D etails LastModified Time Are you able to care for yourself? Yes Information not available 08/18/2023 What is your exercise level? Moderate Information not available 11/06/2015 Mental Status None recorded. Family History Relationship Description Onset Age of this Age Resolved Age Notes LastModified by Organization Details LastModified Time Mother Coronary arterioscler osis homar Not available 11/05 12:49:46 Mother Diabetes mellitus homar Not available 11/05 12:49:46 Father Coronary arterioscler osis [email or web address] Not available 11/05 12:49:46 Sister Malignant tumor of breast [email or web address] Not available 11/05 12:49:46 Sister Diabetes mellitus mwasserman Not available 11/05 12:49:46 Sister Hypertensive disorder [email or web address] Not available 11/05 12:49:46 Brother Hypertensive disorder mwasserman Not available 11/05 12:49:46 Medical History Condition Response Other Y Gynecological History Statement/Question Response Abnormal Pap N STIs/STDs Y HPV Vaccine Y Most Recent Mammogram 02/17/2012 Age at Menarche 14 Current Control Method Tubal Ligat ion Age at First Child 16 Sexually Active? N Menses Monthly N Date of Last Pap Smear 02/10/2012 Sexual Problems? N Desired Control Method None Obstetrics History GPAL:G 4 P 4 0 0 4 Type Value Full Term 4 Living 4 Total 4 Immunizations Vaccine Type Date Status Note Provider Nam e and Address Organization Details Recorded Time Influenza, MDCK, quadrivalent, PF 05/08/2019 completed Not Available [facility] 5 16:16:55 COVID-19, mRNA, LNP-S, PF, 100 mcg/0.5mL dose or 50 mcg/0.25mL dose 12/03/2020 completed Not Available [facility] 5 16:16:55 COVID-19, mRNA, LNP-S, PF, 100 mcg/0.5mL dose or 50 mcg/0.25mL dose 12/31/2020 completed Not Available [facility] 5 16:16:55 Past Encounters Encounter ID Performer Location Encounter Start Date Encounter Closed Date Diagnosis/Indication Diagnosis SNOMED-CT Code Diagnosis ICD10 Code Diagnosis Note [id number] Nuha Piper MD [facility] (Adult Med) [address] [place] [address] 11/29/2024 16:15:10 11/30/2024 09:32:11 Edema of foot 329209468 R60.0 Bilateral pedal edema but left is worse than right. No recent surgeries or long trips. History of chronic diastolic heart failure but I do not have an echo. No chest pain or change in breathing. No PND. Will check a BNP, D-dimer, CMP, and urine. Will have her take her Furosemide daily and will get a CXR. Will have her let me know if any of her symptoms change and will determine further treatment once I get labs back. Medical excuse for work for today and tomorrow so she can get testing done. Urticaria 735004292 L50. 9 Patient has taken oral steroids before and done fine with them. Will take one twice a day for four days and then one once a day. She has an urticaria on her left upper arm at this time. She also was recently seen at the ER for blephariti s of the right eye which has not fully resolved. Not sure what she is reacting to. Will also check a sed rate. Health Concerns Section Related Observation LastModified by Organization Detai ls LastModified Time None Recorded Concern Status LastModified by Organization Details LastModified Time None Recorded Payers Encounter Date Sequence Insurance Name Policy Number Policy Rodriguez Covered Member ID Rodriguez Member ID Guarantor Name 11/29/2024 1 [facility] [id number] Cristal Coleman [id number] Cristal Coleman Notes Date Note Type Note Provider Name and Address Organization Details Recorded Time 11/29/2024 text/html follow up, last week woke up with right eye swollen, went to Urgent Care, said had allergy, prescribed eye drops for eye, has not finished medication yet, started medication last Wednesday, this morning woke up and left ankle swollen, no pain in left leg, took a furosemide, no change in shortness of breath, did not feel like going to work today, no chest pain, breathing is not worse when lay down to sleep, when walks oxygen level drops and needs oxygen and that is how it always has been, uses inhaler because of thick mucous, has been getting rashes on arms, has a new one today on left arm that is itching, Nuha Piper MD Attn: Accounting,[address] [facility], [place], [address], [facility] 11/29/2024 17:28:15 OBGyn Episode No OBEpisode recorded.
--- OUTSIDE RECORDS SUMMARY | 2024-11-30 12:44 | XMS_ITS | Referral Summary ---
Author Organization [facility] Address [address] [place] [address] Care Team Providers Care Director Safety Name Role Phone Juan Coronado MD Unavailable [phone] Nuha Piper MD Primary Care Provider Allergies Active Allergy Reactions Criticality Noted Date Comments Albuterol Other (See comments) Low 04/17/2024 Budesonide-Formoterol Other (See comments) Medium 03/27 Scypwitgfw-Szmytvnb-Undygls rol Other (See comments) Low 04/17/2024 Umeclidinium-Vilanterol [...] hours as needed for pain 15 tablet Active traMADoL (ULTRAM) 50 mg tablet Take 1 tablet (50 mg total) by mouth every 6 (six) hours as needed for pain 15 tablet Active Active Problems Problem Noted Date Diagnosed Date Trigger thumb of left hand 05/30/2024 Trigger finger of right thumb 04/17/2024 Trigger finger of left thumb 04/17/2024 Trigger thumb of right hand 04/17/2024 Hyperlipidemia 04/17/2024 Solitary pulmonary nodule 04/17/2024 Tobacco dependence syndrome 04/17/2024 Pulmonary hypertension 08/03/2023 Congestive heart failure 03/27/2023 Right ventricular dilation 12/15/2022 Bilateral impacted cerumen 02/06/2021 Hearing loss of left ear 02/06/2021 Social History Tobacco Use Types Packs/Day Years [...] Comments Blood Pressure 133/91 06/13/2024 9:15 AM RESIDENT CARE MANAGER Pulse 75 06/13/2024 9:15 AM RESIDENT CARE MANAGER Temperature 36.7 C (98 F) 06/13/2024 8:45 AM RESIDENT CARE MANAGER Respiratory Rate 16 06/13/2024 9:15 AM RESIDENT CARE MANAGER Oxygen Saturation 100% 06/13/2024 9:15 AM RESIDENT CARE MANAGER Inhaled Oxygen Concentration - - Weight 85.7 kg (188 lb 14.4 oz) 05/30/2024 7:50 AM RESIDENT CARE MANAGER Height 175.3 cm (5' 9 ) 05/30/2024 7:50 AM RESIDENT CARE MANAGER Body Mass Index 27.9 05/30/2024 7:50 AM RESIDENT CARE MANAGER Plan of Treatment Not on file Medical Devices Implanted Type Area Ingot Stripper Device Identifier Shelf Expiration Date Model / Serial / Lot Pin Pin Left: Foot Insurance [facility] Address: [place] [address] [employer] [facility] [employer] [place] [address] [employer] [employer] Address: [address] [address] [place] [address] [employer] Care Teams Director Safety Relationship Specialty Start Date End Date Nuha Piper MD [address] [place] [id number] PCP - General Emergency Medicine 04/17/24 Juan Coronado MD [address] [place] [address] Referring Physician Internal Medicine 02/06/21
--- OUTSIDE RECORDS SUMMARY | 2024-11-30 12:45 | XMS_ITS | CONTINUITY OF CARE DOCUMENT ---
Author Name evelia altamirano Address Unknown Organization [facility] Address [address] [facility] [address] [place] [address] Phone [phone] Care Team Providers Care Environmental Engineering Technician Name Role Phone Kushal Angulo MD Unavailable SAV DOUGLAS MD Unavailable [phone] SAV DOUGLAS MD Unavailable [phone] PROBLEMS Condition Status Date Provider Notes Pulmonary hypertension active Kushal Angulo MD Edema active Kushal Angulo MD Diastolic heart failure, chronic active Aquilino Angulo MD Hypertension active Kushal Angulo MD Hyperlipidemia active Kushal Angulo MD C O P D active Kushal Angulo MD Cardiology examination active Kushal Angulo MD ENCOUNTERS Date Type Provider Location Encounter Diag nosis - In-person encounter Office Visit Kushal Angulo MD [facility] - In-person encounter Office Visit Kushal Angulo MD [facility] Cardiology examinationC O P DHyperlipidemiaHypertensionDiastolic heart failure, chronicEdemaPulmonary hypertension VITAL SIGNS Date Observation Value Provider Body Mass Index (Ratio) 27.32 kg/m2 Divine ssa Puhse Inhaled O2 2 L/min Ladonna Godinez blood pressure, cuff size regular Fa venkata Godinez blood pressure, diastolic 91 mm[Hg] Fa [facility] Herbert blood pressure, systolic 143 mm[Hg] [facility] pulse rate 78 /min [facility] oxygen saturation, oximetry 81 % [facility] respiratory rate E&M 16 /min Ladonna Almonte shayla weight E&M 185 [lb_av] [facility] height E&M 69 [in_i] [facility] Body Mass Index (Ratio) 27.61 kg/m2 Kunal Angulo MD blood pressure, diastolic 87 mm[Hg] Mandy nkLog blood pressure, systolic 115 mm[Hg] Damaris kLog blood pressure, cuff size regular Rolando leydi blood pressure, diastolic 87 mm[Hg] Rolando manjarrez blood pressure, systolic 115 mm[Hg] Ashely lofton pulse rate 77 /min Mark elsi y height E&M 69 [in_i] Mark y oxygen saturation, oximetry 95 % Mark respiratory rate E&M 12 /min Mark weight E&M 187 [lb_av] Mark y ALLERGIES No Known Drug Allergies HISTORY OF MEDICATION USE Medication Status Instructions Dates Provider Indications Com ments Trelelinda Ellipta 100-62.5-25 mcg blister with device active albuterol sulfate 2.5 mg/3 mL (0.083 %) solution for nebulization active furosemide 40 mg tablet active 1 tablet once a day Kushal Angulo MD albuterol sulfate 90 mcg/actuation HFA aerosol inhaler active montelukast 10 mg tablet active SOCIAL HISTORY Date Observation Value Provider cigarette use yes [facility] smoking status Former smoker [facility] Surgical History of - Tonsillectomy Surgical History of - Tonsillectomy Kushal Angulo MD cigarette use yes Mark torres smoking status Former smoker Mark Abdi sandy [employer]ANCE PROVID[employer] Payer name Policy type / Coverage type Itzel red alliance party ID [facility] [id number] Other [id number] ADVANCE DIRECTIVES Name Date DISCUSSED - NO DECISION MADE TREATMENT PLAN Date Name Performer Cardiology Kushal Angulo MD Cardiology Kushal Angulo MD Cardiology Kushal Angulo MD Cardiology Kushal Angulo MD Cardiology:Only using lasix prn Kushal Angulo MD Cardiology:Moderatel y severe. Asymptomatic at present. No edema. Kushal Angulo MD Cardiology Kushal Angulo MD Cardiology Kushal Angulo MD Cardiology Kushal Angulo MD Cardiology:Will get test results from [facility]. O nce we have them I can decide on further testing. Kushal Angulo MD HISTORY OF PROCEDURES Procedure Date Procedure Name Provider Procedure Notes S tatus EKG Kushal Angulo MD complete d
--- OUTSIDE RECORDS SUMMARY | 2024-11-30 12:45 | XMS_ITS | Data Portability ---
[facility] Address [address] [place] [address] Assessment Encounter Date Assessment Date Assessment LastModified by Organization Details LastModified Time 01/31/2024 01/31/2024 Gave her a note for work saying that she was here today [email or web address] Not available 01/31/2024 10:34:49 05/01/2024 05/01/2024 water [email or web address] Not available 01/2024 16:21:39 08/30/2024 08/30/2024 No colonoscopy or DEXA scan. Last mammogram 2021. Will discuss at follow up. [email or web address] Not available 08/30/2024 15:59:28 Plan of Treatment Reminders Order Date Submit Date Provider Last Modified By Organization Details Last Modified Time Details Appointments None recorded. Lab erythrocy te sedimenta tion rate by bryon kat method 2024 025 SUPAI TARSHA, [address] [place] [address], [place] [address], [place], [address], 11:38:17 BNP (B-type natriuret ic peptide), serum or plasma 2024 025 SUPAI TARSHA, [address] [place] [address], [facility] [address], [place], [address], 5 10:17:57 D-dimer, quant, plasma 2024 025 SUPAI [facility], [address] [place] [address], [address], [place], [address], 5 13:22:10 CMP, serum or plasma 2024 025 ADILSON WILLINGHAM, [address], [address], [place], [address], 5 11:38:15 albumin/c reatinine , mass ratio, urine 2024 025 ADILSON WILLINGHAM, [address], [address], [place], [address], 5 11:38:14 HbA1c (hemoglob in A1c), blood 2023 024 [email or web address] In-Office Order, Internal Use Only DO Not Attach Compendium DO Not Attach Compendium, Do Not Delete/merge, [id number] 4 16:23:03 lipid panel, serum 2023 024 ADILSON WILLINGHAM, [address], [address], [place], [address], 4 06:17:57 TSH + free T4, serum 2023 024 ADILSON WILLINGHAM, [address], [address], [place], [address], 4 06:17:56 CMP, serum or plasma 2023 024 ADILSON WILLINGHAM, [address], [address], [place], [address], 4 06:17:57 CBC 2023 024 ADILSON WILLINGHAM, [address], [address], [place], [address], 4 06:17:59 vitamin B12 + folate, serum or blood 2023 024 [facility], [address], [address], [place], [address], 4 06:17:58 HbA1c (hemoglob in A1c), blood 2023 024 [facility], [address], [address], [place], [address], 4 06:17:59 Referral otolaryng ologist referral - sore that won't heal 2023 [facility], [address], [place], [address], 4 10:56:40 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 Surgeries None recorded. Imaging XR, chest 2024 025 [facility] (Radiology), [address] [place], [address], 5 17:00:39 XR, hand - pain right thumb MCP joint 2023 024 [facility] (One Call Scheduling), [address] [place], [address], 4 11:08:20 Medication Orders prednison e 20 mg tablet 2024 025 [id number], [address], [place], [id number], 5 16:58:47 Zithromax Z-Ujan 250 mg tablet 2024 025 [facility] #68034, [address], [place], [id number], 5 16:20:08 Trelegy Ellipta 100 mcg-62.5 mcg-25 mcg powder for inhalatio n 2024 025 [facility] #44728, [address], [place], [id number], 5 15:51:24 albuterol sulfate HFA 90 mcg/actua tion aerosol inhaler 2024 025 [facility] #81025, [address], [place], [id number], 5 15:51:23 nystatin 100,000 unit/mL oral suspensio n 2023 025 [facility] #87891, [address], [place], [id number], 5 16:24:39 Spiriva Respimat 2.5 mcg/actua tion solution for inhalatio n 2023 024 [facility] #81327, [address], [place], [id number], 4 14:25:17 Paxlovid 300 mg (150 mg x 2)-100 mg tablets in a dose pack 2023 024 [facility] #40730, [address], [place], [id number], 4 15:22:[address] 10 mg tablet 2023 024 [facility] #21126, [address], [place], [id number], 4 10:15:30 Trelegy Ellipta 100 mcg-62.5 mcg-25 mcg powder for inhalatio n 2023 024 [facility] #61039, [address], [place], [id number], 4 10:15:34 albuterol sulfate HFA 90 mcg/actua tion aerosol inhaler 2023 024 [facility] #73775, [address], [place], [id number], 4 10:15:29 Zithromax Z-Juan 250 mg tablet 2023 024 [facility] #77160, [address], [place], [id number], 5 16:19:56 meloxicam 7.5 mg tablet 2023 025 [facility] #52360, [address], [place], [id number], 5 15:16:27 Patient TargetsNo targets recorded. 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 COPD, possible allergy to beta agonist Referring Physician: [facility], Encounter Date: 05/01/2024 Results Created Date Observation Date Name Description Value Unit Range Abnormal Flag Note LastModifiedBy Organization Detail LastModifiedTime 02/01/20 24 02/02/2024 TSH+F REE T4 TSH 2.570 uIU/m L 0.450- 4.500 Not Available [facility] ([facility]) [address] [place], [address], 02/02/2024 06:17:56 02/01/20 24 02/02/2024 TSH+F REE T4 T4,free(dire ct) 0.93 NG/dL 0.82-1 .77 Not Available [facility] ([facility]) [address] [place], [address], 02/02/2024 06:17:56 02/01/20 24 02/02/2024 LIPID PANEL cholesterol, total 209 mg/dL 100-19 9 above high normal Not Available [facility] ([facility]) [address] [place], [address], 02/02/2024 06:17:57 02/01/20 24 02/02/2024 LIPID PANEL triglyceride s 46 mg/dL 0-149 Not Available [facility] ([facility]) [address] [place], [address], 02/02/2024 06:17:57 02/01/20 24 02/02/2024 LIPID PANEL HDL cholesterol 64 mg/dL >39 Not Available [facility] ([facility]) [address] [place], [address], 02/02/2024 06:17:57 02/01/20 24 02/02/2024 LIPID PANEL VLDL cholesterol clary 8 mg/dL 5-40 Not Available [facility] ([facility]) [address] [place], [address], 02/02/2024 06:17:57 02/01/20 24 02/02/2024 LIPID PANEL LDL chol calc ([facility]) 137 mg/dL 0-99 above high normal Not Available [facility] ([facility]) [address] [place], [address], 02/02/2024 06:17:57 02/01/20 24 02/02/2024 COMP. METAB OLIC PANEL (14) glucose 82 mg/dL 70-99 Not Available [facility] ([facility]) [address] [place], [address], 02/02/2024 06:17:57 02/01/20 24 02/02/2024 COMP. METAB OLIC PANEL (14) BUN 16 mg/dL 8-27 Not Available [facility] ([facility]) [address] [place], [address], 02/02/2024 06:17:57 02/01/20 24 02/02/2024 COMP. METAB OLIC PANEL (14) creatinine 0.64 mg/dL 0.57-1 .00 Not Available [facility] ([facility]) [address] [place], [address], 02/02/2024 06:17:57 02/01/20 24 02/02/2024 COMP. METAB OLIC PANEL (14) eGFR 97 mL/mi n/1.7 3 >59 Not Available [facility] ([facility]) [address] [place], [address], 02/02/2024 06:17:57 02/01/20 24 02/02/2024 COMP. METAB OLIC PANEL (14) BUN/creatini ne ratio 25 12-28 Not Available [facility] ([facility]) [address] [place], [address], 02/02/2024 06:17:57 02/01/20 24 02/02/2024 COMP. METAB OLIC PANEL (14) sodium 135 mmol/ L 134-14 4 Not Available [facility] ([facility]) [address] [place], [address], 02/02/2024 06:17:57 02/01/20 24 02/02/2024 COMP. METAB OLIC PANEL (14) potassium 4.7 mmol/ L 3.5-5. 2 Not Available [facility] ([facility]) [address] [place], [address], 02/02/2024 06:17:57 02/01/20 24 02/02/2024 COMP. METAB OLIC PANEL (14) chloride 96 mmol/ L 96-106 Not Available [facility] ([facility]) [address] [place], [address], 02/02/2024 06:17:57 02/01/20 24 02/02/2024 COMP. METAB OLIC PANEL (14) carbon dioxide, total 25 mmol/ L 20-29 Not Available [facility] ([facility]) [address] [facility], [place], [address], 02/02/2024 06:17:57 02/01/20 24 02/02/2024 COMP. METAB OLIC PANEL (14) calcium 9.4 mg/dL 8.7-10 .3 Not Available [facility] ([facility]) [address] [place], [address], 02/02/2024 06:17:57 02/01/20 24 02/02/2024 COMP. METAB OLIC PANEL (14) protein, total 7.0 g/dL 6.0-8. 5 Not Available [facility] ([facility]) [address] [place], [address], 02/02/2024 06:17:57 02/01/20 24 02/02/2024 COMP. METAB OLIC PANEL (14) albumin 4.3 g/dL 3.9-4. 9 Not Available [facility] ([facility]) [address] [place], [address], 02/02/2024 06:17:57 02/01/20 24 02/02/2024 COMP. METAB OLIC PANEL (14) globulin, total 2.7 g/dL 1.5-4. 5 Not Available [facility] ([facility]) [address] [place] [place], [address], 02/02/2024 06:17:57 02/01/20 24 02/02/2024 COMP. METAB OLIC PANEL (14) bilirubin, total 0.4 mg/dL 0.0-1. 2 Not Available [facility] ([facility]) [address] [place], [address], 02/02/2024 06:17:57 02/01/20 24 02/02/2024 COMP. METAB OLIC PANEL (14) alkaline phosphatase 123 IU/L 44-121 above high normal Not Available [facility] ([facility]) [address] [place], [address], 02/02/2024 06:17:57 02/01/20 24 02/02/2024 COMP. METAB OLIC PANEL (14) AST (SGOT) 26 IU/L 0-40 Not Available [facility] ([facility]) [address] [place], [address], 02/02/2024 06:17:57 02/01/20 24 02/02/2024 COMP. METAB OLIC PANEL (14) ALT (SGPT) 20 IU/L 0-32 Not Available [facility] ([facility]) [address] [place], [address], 02/02/2024 06:17:57 02/01/20 24 02/02/2024 VITAM IN B12 AND FOLAT E vitamin B12 583 pg/mL 232-12 45 Not Available [facility] ([facility]) [address] [place], [address], 02/02/2024 06:17:58 02/01/20 24 02/02/2024 VITAM IN B12 AND FOLAT E folate (folic acid), serum 15.2 NG/mL >3.0 A serum folat e moises ntrat ion of less than 3.1 ng/mL is consi dered to repre sent clini clary defic iency . Not Available [facility] ([facility]) [address] [facility], [place], [address], 02/02/2024 06:17:58 02/01/2002/02/2024 HEMOG LOBIN A1C hemoglobin A1C 6.4 % 4.8-5. 6 above high normal Predi abete s: 5.7 - 6.4 Diabe jeniffer: >6.4 Glyce coleman contr ol for adult s with diabe jeniffer: <7.0 Not Available [facility] ([facility]) [address] [facility], [place], [address], 02/02/2024 06:17:59 02/01/2002/01/2024 CBC, PLATE LET, NO DIFFE RENTI AL WBC 6.6 x10e3 /uL 3.4-10 .8 Not Available [facility] ([facility]) [address] [facility], [place], [address], 02/02/2024 06:17:59 02/01/20 24 02/01/2024 CBC, PLATE LET, NO DIFFE RENTI AL RBC 4.97 x10e6 /uL 3.77-5 .28 Not Available [facility] ([facility]) [address] [facility], [place], [address], 02/02/2024 06:17:59 02/01/2002/01/2024 CBC, PLATE LET, NO DIFFE RENTI AL hemoglobin 14.3 g/dL 11.1-1 5.9 Not Available [facility] ([facility]) [address] [place], [address], 02/02/2024 06:17:59 02/01/2002/01/2024 CBC, PLATE LET, NO DIFFE RENTI AL hematocrit 44.5 % 34.0-4 6.6 Not Available [facility] ([facility]) [address] [facility], [place], [address], 02/02/2024 06:17:59 02/01/20 24 02/01/2024 CBC, PLATE LET, NO DIFFE RENTI AL MCV 90 fL 79-97 Not Available [facility] ([facility]) [address] [facility], [place], [address], 02/02/2024 06:17:59 02/01/20 24 02/01/2024 CBC, PLATE LET, NO DIFFE RENTI AL MCH 28.8 pg 26.6-3 3.0 Not Available [facility] ([facility]) [address] [facility], [place], [address], 02/02/2024 06:17:59 02/01/20 24 02/01/2024 CBC, PLATE LET, NO DIFFE RENTI AL MCHC 32.1 g/dL 31.5-3 5.7 Not Available [facility] ([facility]) [address] [facility], [place], [address], 02/02/2024 06:17:59 02/01/20 24 02/01/2024 CBC, PLATE LET, NO DIFFE RENTI AL RDW 12.2 % 11.7-1 5.4 Not Available [facility] ([facility]) [address] [facility], [place], [address], 02/02/2024 06:17:59 02/01/20 24 02/01/2024 CBC, PLATE LET, NO DIFFE RENTI AL platelets 245 x10e3 /uL 150-45 0 Not Available [facility] ([facility]) [address] [place], [address], 02/02/2024 06:17:59 04/05/20 24 04/05/2024 influ harris virus A + B + SARS- CoV-2 (COVI D19) Ag panel , rapid IA, upper respi rator y speci men Flu A negati ve Not Available In-Office Order Internal Use Only DO Not Attach Compendium DO Not Attach Compendium, Do Not Delete/merge, [id number] 04/05/2024 09:42:38 04/05/20 24 04/05/2024 influ harris virus A + B + SARS- CoV-2 (COVI D19) Ag panel , rapid IA, upper respi rator y speci men Flu B negati ve Not Available In-Office Order Internal Use Only DO Not Attach Compendium DO Not Attach Compendium, Do Not Delete/merge, [id number] 04/05/2024 09:42:38 04/05/20 24 04/05/2024 influ harris virus A + B + SARS- CoV-2 (COVI D19) Ag panel , rapid IA, upper respi rator y speci men Rapid SARS CoV 2 Ag, QL IA, respiratory specimen positi ve Not Available In-Office Order Internal Use Only DO Not Attach Compendium DO Not Attach Compendium, Do Not Delete/merge, [id number] 04/05/2024 09:42:38 05/01/20 24 05/01/2024 HbA1c (hemo globi n A1c), blood HbA1c 6.1 Not Available In-Office Order Internal Use Only DO Not Attach Compendium DO Not Attach Compendium, Do Not Delete/merge, [id number] 05/01/2024 16:11:37 02/01/20 24 02/01/2024 XR, hand No observ ation record ed. [facility] [address] [place], [address], 02/03/2024 12:35:03 03/08/20 24 03/07/2024 MRI, hand, w/o contr ast No observ ation record ed. [facility] ([facility]) [address] [place] [address] [place], [address], 03/21/2024 16:27:55 Result Notes None recorded. Problems Name Problem SNOMED Code Status Onset Date Resolution Date Notes Provider Name and Address Organization Details Recorded Time Bronchitis 73841315 Active Not Available [facility] 4 08:37:44 Acute bronchitis 93879900 Active Not Available [facility] 4 08:37:44 Chronic obstructive pulmonary disease 22041089 Active Not Available [facility] 4 08:37:44 Tobacco dependence syndrome 55136254 Active Not Available [facility] 4 08:37:44 Food intolerance 12981914 Active Not Available [facility] 4 08:37:44 Solitary nodule of lung 265110200 Active Not Available [facility] 4 08:37:44 Hyperlipidemi a 59472122 Active Not Available [facility] 4 08:37:44 Notes:Some problems listed i n Documents: #[id number], #[id number], #[id number] could not be added to this patient's chart. Please review these documents and add these problems to the patient's chart manually as needed. Problem Notes None recorded. Procedures Surgical History Date Name Laterality Status Provider Name and Address Organization Details Recorded Time 02/17/20 12 Most Recent Mammogram completed Salima Young MA [facility] 11/06/2015 10:31:53 02/10/20 12 Date of Last Pap Smear completed Salima Young MA [facility] 11/06/2015 10:28:40 Tonsillectomy completed Gris Quintero MA [facility] 09/13/2014 10:15:49 Tubal Ligation completed Gris Quintero MA [facility] 09/13/2014 10:15:49 Other completed Gris Quintero MA [facility] 09/13/2014 10:15:49 Orthopedic Surgery completed Salmia Young MA [facility] 11/06/2015 10:40:08 Imaging Results Imaging Date Name Status LastModified by Organiz ation Details LastModified Time 02/01/2024 XR, hand completed [facility] [address] [place], [address], 02/03/2024 12:35:03 03/07/2024 MRI, hand, w/o contrast completed [facility] ([facility]) [address] [place] [address] [place], [address], 03/21/2024 16:27:55 Procedure Notes None recorded. Medical Equipment None Reported. Allergies Allergen ID Allergen Name Allergen Category Reaction Reaction Severity Criticality Documentation Date Start Date Code Code System Note Provider Name and Address Organization Details Recorded Time 712298 Symbicort medicatio n other moderate Not available 07/11/2019 21035 8 RxNorm magalys e marcelina ing and heari ng issue s Chey Collins RN null, [facility] 9 17:46:45 983515 albuterol medicatio n Not available Not available Not available 02/20/2021 435 RxNorm Efren King MA null, [facility] 1 17:04:16 Medications Name Sig Start Date Stop [...] HOURS NEEDED FOR PAIN OR ACUTE PAIN 08/18 completed Not Available Not Available Not Available [...] completed Not Available Not Available Not Available Azeb Allergy 180 mg tablet Take 1 tablet every day by oral route. 01/30 completed Not Available Not Available Not Available Celia Jaimes [facility] spacer USE DIRECTED active Not Available Not [...] Address Organization Details Last Updated DateTime 4 168.91 cm 28.3 kg/m2 32452.4 4 g 94 % 94 % 84 /min 97.8 [degF] 112 mm[Hg] 62 mm[Hg] Marian Moody [place] [facility] 4 09:37:46 Date Recorded Body height Body mass index (BMI) Body weight Oxygen saturation Oxygen saturation in Arterial blood by Pulse oximetry Heart rate Body temperature Systolic blood pressure Diastolic blood pressure Provider Name and Address Organization Details Last Updated DateTime 4 168.91 cm 28.6 kg/m2 92653.6 3 g 94 % 94 % 81 /min 97.8 [degF] 118 mm[Hg] 70 mm[Hg] Jessica Wilson [place] [facility] 4 17:11:35 Date Recorded Body height Body mass index (BMI) Body weight Oxygen saturation Oxygen saturation in Arterial blood by Pulse oximetry Heart rate Systolic blood pressure Diastolic blood pressure Provider Name and Address Organization Details Last Updated DateTime 4 168.91 cm 28.8 kg/m2 52604.2 2 g 94 % 94 % 81 /min 118 mm[Hg] 78 mm[Hg] Jessica Wilson MA [facility] 4 15:31:25 Date Recorded Body height Body mass index (BMI) Body weight Oxygen saturation Oxygen saturation in Arterial blood by Pulse oximetry Heart rate Body temperature Systolic blood pressure Diastolic blood pressure Provider Name and Address Organization Details Last Updated DateTime 5 168.91 cm 30.4 kg/m2 36446.1 4 g 94 % 94 % 78 /min 97.8 [degF] 120 mm[Hg] 82 mm[Hg] Jessica Wilson MA [facility] 5 15:19:25 Date Recorded Body height Body mass index (BMI) Body weight Oxygen saturation Oxygen saturation in Arterial blood by Pulse oximetry Heart rate Body temperature Systolic blood pressure Diastolic blood pressure Provider Name and Address Organization Details Last Updated DateTime 5 168.91 cm 31.8 kg/m2 71759.4 7 g 94 % 94 % 71 /min 97.8 [degF] 118 mm[Hg] 78 mm[Hg] Jessica Wilson MA [facility] 5 16:26:48 Social History Question Answer Notes LastModified by Organizat ion Details LastModified Time Tobacco Smoking Status Current Some Day Smoker quite 07/26/23 Jessica Wilson MA null, [facility] 11/29/2024 16:25:17 Do You Have An Advance [...] not available 11/06/2015 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 [id number] Information not available 07/14/2023 Do You Use [...] Details LastModified Time Mother Coronary arterioscler osis [email or web address] Not available 11/05 12:49:46 Mother Diabetes mellitus [email or web address] Not available 11/05 12:49:46 Father Coronary arterioscler osis [email or web address] Not available 11/05 12:49:46 Sister Malignant tumor [...] MDCK, quadrivalent, PF 05/08/2019 completed Not Available [facility] 5 16:16:55 COVID-19, mRNA, LNP-S, PF, 100 mcg/0.5mL dose or 50 mcg/0.25mL dose 12/03/2020 completed Not Available [facility] 5 16:16:55 COVID-19, mRNA, LNP-S, PF, 100 mcg/0.5mL dose or 50 mcg/0.25mL dose 12/31/2020 completed Not Available [facility] 5 16:16:55 Past Encounters Encounter ID Performer Location Encounter Start Date Encounter Closed Date Diagnosis/Indication Diagnosis SNOMED-CT Code Diagnosis ICD10 Code Diagnosis Note [id number] [facility] [address] [place] [address] 0 09/13/2014 09:52:36 09/13/2014 10:52:55 Acute bronchitis 99859979 Chronic ob structive pulmonary disease 04894651 Tobacco de pendence syndrome 89950964 [id number] [facility] [address] [place] [id number] 04/26/2015 09:55:23 04/26/2015 14:21:07 Acute bronchitis 16787897 J20.9 Chronic ob structive pulmonary disease 54287386 J44.9 Tobacco de pendence syndrome 12634980 F17.290 [id number] Juan Coronado MD [facility] (Adult Med) [address] [place] [phone] 08/28/2015 11:57:37 08/28/2015 13:08:38 Family history of diabetes mellitus 453332099 Z83.3 Chronic ob structive pulmonary disease 13391856 J44.9 Tobacco de pendence syndrome 48790541 F17.290 Food intolerance 8511516 0 K90.4 [id number] MD Shiva Chambers (Adult Med) [address] [place] [id number] 0 10/30/2015 10:35:44 10/30/2015 11:30:15 Chronic obstructive pulmonary disease 68184128 J44.9 Solitary n odule of lung 351626353 R91.1 Tobacco de pendence syndrome 09694782 F17.290 Hyperlipidemia 48613072 E78.5 [id number] MD Shiva Fulton ([employer]) [address] [place] [id number] 11/06/2015 10:01:01 11/06/2015 14:32:24 Gynecologic examination 84379552 Z01.419 Screening for malignant neoplasm of breast 571841033 Z12.31 [id number] MD Shiva Chambers (Adult Med) [address] [place] [phone] 0 04/07/2016 11:40:50 04/07/2016 16:30:35 Acute bronchitis 33922899 J20.9 Chronic ob structive pulmonary disease 06151553 J44.9 Solitary n odule of lung 383468450 R91.1 Tobacco de pendence syndrome 98292151 F17.290 Hyperlipidemia 89196394 E78.5 [id number] MD Shiva Chambers (Adult Med) [address] [place] [id number] 07/21/2017 11:47:03 07/21/2017 13:07:16 Acute exacerbation of chronic obstructive pulmonary disease 877448587 J44.1 Nicotine dependence 5629 4008 F17.200 Screening mammography 24 644625 Z12.31 Patient refuses,. [id number] [facility] [address] [place] [address] [id number] 0 10/20/2017 16:13:49 10/20/2017 17:01:07 Chronic obstructive pulmonary disease 98472214 J44.9 Nicotine dependence 5629 4008 F17.200 Screening mammography 24 019287 Z12.31 Patient refuses,. She is planing to go to vacation, will consider the colonoscop y ex . next time. [id number] MD Shiva Chambers (Adult Med) [address] [place] [address] [id number] 0 01/21/2018 17:31:56 01/24/2018 11:20:56 Chronic obstructive pulmonary disease 25363092 J44.9 Nicotine dependence 5629 4008 F17.200 Screening mammography 24 308292 Z12.31 Patient refuses,. She is planing to go to vacation, will consider the colonoscop y ex . next time. Screening for malignant neoplasm of colon 455938012 Z12.11 [id number] MD Shiva Chambers (Adult Med) [address] [place] [address] [id number] 09/05/2018 16:49:04 09/05/2018 18:21:51 Acute exacerbation of chronic obstructive pulmonary disease 327253208 J44.1 [id number] Juan Coronado [facility] (Adult [facility] [address] [place] [id number] 01/18/2019 16:37:11 01/19/2019 08:55:39 Chronic obstructive pulmonary disease 44745132 J44.9 To continue ventolin and symbicort inhalers. Nicotine dependence 5629 4008 F17.085 [id number] MD Shiva Chambers (Adult Med) [address] [place] [id number] 0 05/10/2019 17:16:51 05/11/2019 11:46:32 Acute bronchitis 63282762 J20.9 Impacted c erumen of bilateral ears [id number] 882905 H61.23 Discussed with patient OTC device to wash ear wax or OTC wax softener. Tobacco de pendence syndrome 07973606 F17.290 Stable Chronic ob structive pulmonary disease 79151287 J44.9 To continue ventolin and symbicort inhalers. [id number] [facility] [address] [place] [address] [phone] 0 07/04/2019 17:03:55 07/05/2019 10:24:13 Chronic obstructive pulmonary disease 11223637 J44.9 To continue ventolin and symbicort inhalers. Nicotine dependence 5629 4008 F17.200 She has no intention to quit cigarettes smoking. [id number] [facility] [address] [place] [address] [phone] 0 09/28/2019 16:53:43 10/02/2019 14:26:14 Chronic obstructive pulmonary disease 41070961 J44.9 To continue ventolin and symbicort inhalers. Nicotine dependence 5629 4008 F17.200 She has no intention to quit cigarettes smoking. Pain of le ft hip joint 1413422671 17668 M25.552 Discussed with patient, she agreed. [id number] MD Shiva Chambers (Adult Med) [address] [place] [address] [phone] 0 04/05/2020 08:22:05 04/10/2020 09:00:33 Chronic obstructive pulmonary disease 74884348 J44.9 To continue ventolin and symbicort inhalers. Hyperlipidemia 55529986 E78.5 Low animal fat diet. Tobacco de pendence syndrome 92516066 F17.290 Stable, urge her to quit smoking. [id number] MD Shiva Chambers (Adult Med) [address] [place] [address] [phone] 0 09/27/2020 09:33:58 09/27/2020 20:21:43 Chronic obstructive pulmonary disease 20451455 J44.9 To continue ventolin inhalers. Tobacco de pendence syndrome 54601375 F17.290 Stable, urge her to quit smoking. [id number] MD Shiva Chambers (Adult Med) [address] [place] [address] [phone] 0 12/13/2020 16:53:39 12/16/2020 11:36:27 Acquired hearing loss 965064035 H91.92 She believes that she has wax impaction, she agreed for the ENT referral. [id number] MD Shiva Chambers (Adult Med) [address] [place] [address] [phone] 0 02/20/2021 16:48:11 02/24/2021 19:02:32 Chronic obstructive pulmonary disease 34125719 J44.9 To continue ventolin and symbicort inhalers. Hyperlipidemia 43445207 E78.5 Low animal fat diet. Tobacco de pendence syndrome 18168155 F17.290 Stable, urge her to quit smoking. [id number] MD Shiva Chambers (Adult Med) [address] [place] [address] [phone] 0 08/22/2021 16:06:33 08/25/2021 07:54:54 Chronic obstructive pulmonary disease 23998671 J44.9 To continue ventolin and symbicort inhalers. WAnts breztri instead, she wants it aft tried from her friend, but hopefully it will pass thru her health insyurance . Acute exac erbation of chronic obstructive pulmonary disease 308050077 J44.1 Med as ordered, willing to go back to work on 08-25-2021 . without restrictio n. Smoker 49932628 F17.200 Advised her to quit smoking for the goosd health and financial reasons. [id number] Juan Coronado MD [facility] (Adult Med) [address] [place] [address] [phone] 0 12/05/2021 16:12:33 12/09/2021 07:47:09 Esophageal dysphagia 67821749 R13.19 Will refer to GI specialist . Chronic ob structive pulmonary disease 50951378 J44.9 To continue ventolin and symbicort inhalers. Wants breztri instead, she wants it aft tried from her friend, but hopefully it will pass thru her health insurance. Smoker 01619809 F17.200 Advised her to quit smoking for the good health and financial reasons. Discoloration of skin 32 99623 R23.8 Screening mammography 24 703903 Z12.31 Patient refuses,. She is planing to go to vacation, will consider the colonoscop y ex . next time. Screening for malignant neoplasm of cervix 689214235 Z12.4 Screening for malignant neoplasm of colon 430245488 Z12.11 [id number] Juan Coronado MD [facility] (Adult Med) [address] [place] [address] [phone] 0 02/20/2022 15:45:48 02/23/2022 09:09:38 Chronic obstructive pulmonary disease 44983311 J44.9 To continue ventolin and symbicort inhalers. Wants breztri instead, she wants it aft tried from her friend, but hopefully it will pass thru her health insurance. She is wiling to go back tomorrow for regular duty. 02-20-2022 . Smoker 45222884 F17.200 Advised her to quit smoking for the good health and financial reasons. Edema of l ower extremity 657395887 R60.0 Lo salt diet, refill diuretic. Renewal of prescription 188455855 Z76.0 [id number] Juan Coronado MD [facility] (Adult Med) [address] [place] [address] [phone] 0 05/22/2022 16:32:55 05/25/2022 08:07:34 Acute bronchitis 95151307 J20.9 chest congestion . wants some ABS, Chronic ob structive pulmonary disease 65813213 J44.9 To continue ventolin and symbicort inhalers. Wants breztri instead, she wants it after tried from her friend, but hopefully it will pass thru her health insurance. Smoker 63158851 F17.200 Advised her to quit smoking for the good health and financial reasons. Annual LDCT is negative for lung tumor, copy provided to her today 02-20-2022 . [id number] Juan Coronado [facility] [address] [place] [address] [phone] 0 09/28/2022 14:56:54 10/01/2022 10:21:29 Obesity 545282038 E66.9 BMI is 31.7, diet, exercise , and keep the weight down. Chronic ob structive pulmonary disease 45337240 J44.9 To continue ventolin and symbicort inhalers. Wants breztri instead, she wants it after tried from her friend, but hopefully it will pass thru her health insurance. As 09-28-22, Breztri made her breathing worse . wants handicappe d parking card, and nebulizer. dose not want portable oxygen. Until she finish PFT , if FEV1 less than 1 litter, then she would qualify for handicappe d parking card. 09-28-22. Smoker 86540670 F17.200 Advised her to quit smoking for the good health and financial reasons. Annual LDCT is negative for lung tumor, copy provided to her today 02-20-2022 . Screening for malignant neoplasm of colon 801930287 Z12.11 Refused today 09-28-22. [id number] [facility] [address] [place] [address] [phone] 0 11/25/2022 10:05:33 11/26/2022 13:54:59 Acute exacerbation of chronic obstructive pulmonary disease 002229763 J44.1 Med as ordered, willing to go back to work on 08-25-2021 . without restrictio n. She feels inhaler is not working,an d nebulizer at ER made her face swollen. Smoker 57446383 F17.200 Advised her to quit smoking for the good health and financial reasons. Annual LDCT is negative for lung tumor, copy provided to her today 02-20-2022 . she is aware of smoking can cause cancer of lung, throat, and mouth, and emphysema, and other disease, She is willing to go back to regular work tomorrow, 11-25-22. [id number] [facility] [address] [place] [address] [phone] 0 12/28/2022 16:47:48 12/31/2022 12:50:26 Chronic obstructive pulmonary disease 39058274 J44.9 To continue ventolin and symbicort inhalers. Wants breztri instead, she wants it after tried from her friend, but hopefully it will pass thru her health insurance. As 09-28-22, Breztri made her breathing worse . wants handicappe d parking card, and nebulizer. dose not want portable oxygen. Until she finish PFT , if FEV1 less than 1 litter, then she would qualify for handicappe d parking card. 09-28-22. Smoker 15930791 F17.200 Advised her to quit smoking for the good health and financial reasons. Annual LDCT is negative for lung tumor, copy provided to her today 02-20-2022 . she is aware of smoking can cause cancer of lung, throat, and mouth, and emphysema, and other disease, She is willing to go back to regular work tomorrow, 11-25-22. [id number] MD Shiva Chambers (Adult Med) [address] [place] [address] [phone] 0 03/19/2023 14:19:16 03/23/2023 12:20:22 Chronic obstructive pulmonary disease 99239784 J44.9 To continue ventolin and symbicort inhalers. Wants breztri instead, she wants it after tried from her friend, but hopefully it will pass thru her health insurance. As 09-28-22, Breztri made her breathing worse . wants handicappe d parking card, and nebulizer. dose not want portable oxygen. Until she finish PFT , if FEV1 less than 1 litter, then she would qualify for handicappe d parking card. 09-28-22.A s 03-19-23, she prefer symbicort instead of estella la, which she siad is too strong , too expensive . Obesity 685504077 E66.9 BMI is 31.7, diet, exercise , and keep the weight down..BMI is 32.4 as 03-19-23. Smoker 77308819 F17.200 Advised her to quit smoking for the good health and financial reasons. Annual LDCT is negative for lung tumor, copy provided to her today 02-20-2022 . she is aware of smoking can cause cancer of lung, throat, and mouth, and permanent emphysema, and other disease, She is willing to go back to regular work tomorrow, 11-25-22. Acute bronchitis 5971703 2 J20.9 chest congestion . wants some ABS, Edema of l ower extremity 203175432 R60.0 Low salt diet, refill diuretic. SARS-CoV-2 mRNA vaccine declined 3613349422 Z28.21 She declined . [facility] er screening declined 7959356546 9109 Z53.20 She siad that she had one done in December this year. . [id number] Juan Coronado MD [facility] (Adult Med) [address] [place] [address] [phone] 0 04/14/2023 14:21:40 04/16/2023 16:11:11 Chronic obstructive pulmonary disease 07088765 J44.9 To continue ventolin and symbicort inhalers. Wants breztri instead, she wants it after tried from her friend, but hopefully it will pass thru her health insurance. As 09-28-22, Breztri made her breathing worse . wants handicappe d parking card, and nebulizer. dose not want portable oxygen. Until she finish PFT , if FEV1 less than 1 litter, then she would qualify for handicappe d parking card. 09-28-22.A s 03-19-23, she prefer symbicort instead of estella la, which she siad is too strong , too expensive . Smoker 89225611 F17.200 Advised her to quit smoking for the good health and financial reasons. Annual LDCT is negative for lung tumor, copy provided to her today 02-20-2022 . she is aware of smoking can cause cancer of lung, throat, and mouth, and permanent emphysema, and other disease, She is willing to go back to regular work tomorrow, 11-25-22. Obstructiv e sleep apnea syndrome 92552179 G47.33 She wants to hold sleep medicine referral at present time. SARS-CoV-2 mRNA vaccine declined 3928351980 Z28.21 She declined 04-14-23. [id number] Juan Coronado MD [facility] (Adult Med) [address] [place] [address] 07/14/2023 16:37:21 07/20/2023 16:27:49 Edema of lower extremity 973932327 R60.0 Low salt diet, refill diuretic. She is on 40 mg furosemide from 20 mg /day. Chest x ray no pulmonary. edema but enlarged heart, possible CHF , will refer to cardiologi for further evaluation , she agreed. Chronic ob structive pulmonary disease 83473702 J44.9 To continue ventolin and symbicort inhalers. Wants breztri instead, she wants it after tried from her friend, but hopefully it will pass thru her health insurance. As 09-28-22, Breztri made her breathing worse . wants handicappe d parking card, and nebulizer. dose not want portable oxygen. Until she finish PFT , if FEV1 less than 1 litter, then she would qualify for handicappe d parking card. 09-28-22.A s 03-19-23, she prefer symbicort instead of estella la, which she siad is too strong , too expensive . On portable oxygen. SARS-CoV-2 mRNA vaccine declined 4127088675 Z28.21 She declined 04-14-23.. She declined today 07-14-23. [facility] er screening declined 7087770984 9109 Z53.20 She siad that she had one done in December this year. 03-09-23. [id number] MD Shiva Chambers (Adult Med) [address] [place] [address] [phone] 0 08/18/2023 14:55:37 08/19/2023 15:50:13 Contusion of multiple sites 498175351 T07.XXXA Left rib cage and knees. Right knee is more painful than left. [id number] MD Shiva Jacobs (Adult Med) [address] [place] [address] [phone] 0 01/31/2024 09:11:13 02/01/2024 13:35:04 Pain in right thumb 6117954332 109079 M79.644 Will get an xray of the hand to look at the right thumb MCP joint. Can use Meloxicam for pain. Paresthesi a of lower extremity 136816964 R20.2 Will do blood work to rule out systemic causes. If blood work is normal EMG/NCS. On exam she did not have any neurologic deficits. 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 Chronic ob structive pulmonary disease 53443351 J44.9 Sees pulmonolog ist. Doing well with Trelegy and Albuterol. Will refill inhalers. Would like Zithromax to have if has exacerbati on. I agreed to send it out but asked her to attempt to reach out to me first. Nicotine user 313958819 Z72.0 Tried a 21 mg patch and felt nauseated. Discussed trying a lower dose patch. Will discuss lower at follow up. Painful mouth 661208081 K13.79 Has had an issue with mouth pain after using inhaler. Advised her to avoid rinsing with peroxide. She will rinse with water or salt water and try using spacer. Will let me know if this does not help after a couple of weeks. Pulmonary hypertension 72369651 I27.20 Control respirator y disease. No evidence of heart failure. Has not been needing the diuretic. Hyperlipid emia screening 743132333 Z13.833 [id number] MD Shiva Jacobs (Adult Med) [address] [place] [address] [phone] 0 04/04/2024 17:01:47 04/05/2024 10:57:47 Body mass index 25-29 - overweight 552892550 Z68.28 COVID-19 805535790 U07.1 COVID test was positive. Will treat with Paxlovid. Gave her a note for work. Recommende d rest and fluids. Advised her to start Paxlovid tonight. Advised rest and fluids. Can continue over the counter medication s. Asked her to reach out to me if she feels worse or if she is not better by the end of next week. Chronic ob structive pulmonary disease 56486742 J44.9 Continue Trelegy regularly and Albuterol as needed. [id number] Nuha Piper MD [facility] (Adult Med) [address] [place] [address] [phone] 0 05/01/2024 15:16:46 05/05/2024 15:01:02 Allergy to drug 750553041 Z88.9 Feels she is unable to tolerate the inhalers and something about them keeps contributi ng to her difficulti es with her throat and breathing. There was already an allergy to Albuterol in the chart when I started managing her care. I took her off all Beta agonists at this time and am going to refer her to an cane furniture maker to explore the possibilit y of beta agonist allergy and clear this up for certain. Patient wants to do this as well because she feels she is reacting to an inhaler. She will follow up with me after that. Laboratory test result abnormal 598159002 R89.9 Hemaglobin A1C decreased. Not as close to diabetes. Will continue to work on diet. Lesion of oral mucosa 10 79612153 210536 K13.70 Flat white lesion of oral mucosa that does not heal. Referral to ENT for further evaluation . Chronic ob structive pulmonary disease 30337601 J44.9 Concerned about possible allergy to beta agonist. I am going to send her to an cane furniture maker for further evaluation of this. I am also stopping the Steroid inhaler due to possible recurrent thrush despite rinsing mouth out after each use. Will switch to only a LAMA. Follow up in a few weeks to see how she is breathing. Advised her to seek immediate medical attention if she has any respirator y difficulty with these inhaler changes. Candidiasis of mouth 797 70410 B37.0 Drink 6-8 eight ounce glasses of water daily. Nystatin swish and spit. Will avoid beta steroid inhalers. [id number] MD Shiva Jacobs (Adult Med) [address] [place] [address] [phone] 0 08/30/2024 15:07:15 09/04/2024 15:34:28 Chronic obstructive pulmonary disease 47920091 J44.9 Using Trelegy regularly and Albuterol as needed. This is working well. Needs refills. Advised her that whenever she has an increase in her use of Albuterol she should let me know so I can evaluate her for illness or COPD exacerbati on. Working on smoking cessation. Acute exac erbation of chronic obstructive pulmonary disease 680639060 J44.1 Has been using her albuterol more and has increase in chest congestion . Will treat with course of Zithromax. Continue Trelegy regularly. If not back to normal after ten days will let me know. Follow up in three months. Nicotine dependence 5629 4008 F17.200 Has nicotine patches at home. Feels may have been nauseated earlier because she smoked with them. Will try them again. If she feels nauseated again she will let me know and we may be able to cut down on dose. Will follow up in one month to see how she is doing. Hypercholesterolemia 136 78586 E78.00 Last lipid panel checked in January calculated moderate risk for coronary artery disease. She will continue to work on diet and smoking cessation. Will repeat lipid panel at follow up in three months. If still moderate risk will try medication . Was put on medication once before and had back pain so is cautious about medication . I reassured her I do not want to give her medication that causes intolerabl e side effects. Candidiasis of mouth 797 96594 B37.0 Resolved with Nystatin. Will let me know if that starts to develop again. [id number] MD Shiva Jacobs (Adult Med) [address] [place] [address] 11/29/2024 16:15:10 11/30/2024 09:32:11 Edema of foot 983293393 R60.0 Bilateral pedal edema but left is [...] so she can get testing done. Urticaria 491854754 L50. 9 Patient has taken oral steroids [...] LastModified Time None Recorded Advance Directives Directive N: Payers Encounter Date Sequence Insurance Name Policy Number Policy Rodriguez Covered Member ID Rodriguez Member ID Guarantor Name 01/31/2024 1 [employer] [id number] Cristal Coleman [id number] Cristal Coleman 04/04/2024 1 [employer] [id number] Cristal Coleman [id number] Cristal Coleman 05/01/2024 1 [employer] [id number] Cristal Aguileraers [id number] Cristal Coleman 08/30/2024 1 UMR [id number] Cristal Coleman [id number] Cristal Coleman 11/29/2024 1 UMR [id number] Cristal Coleman [id number] Cristal Coleman Notes Date Note Type Note Provider Name and Address Organization Details Recorded Time 01/31/2024 text/html here to kenya camacho, has COPD, hospitalized multiple times last year for COPD, had issues with retaining water, went to a digital art director and said heart was fine, had pulmonary hypertension, uses Trelegy now for breathing, tongue stays sore, rinses with peroxide, had thrush, uses Albuterol as needed and needs a refill, uses Albuterol maybe every day but not always every day, occasionally smokes, has been smoking fifty years, still works and smokes on breaks, tried to use patches and they made her sick, occasionally notices fingers on the left hand get numb,no weakness, it is all the fingers, notices it while driving, has noticed it a few months, 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, right thumb gets sore, if bends it it gets stuck, has not had any swelling, has pain in upper arms, Nuha Piper MD Attn: [address] [facility], [place], [address], [facility] 01/31/2024 10:34:52 04/04/2024 text/html sick visit, started five days ago, started with nasal congestion, then slowly went down into chest, coughing, tired, thick mucous, using rescue inhaler more, no headaches, no body aches, no fever, no sweats or chills, not short of breath, didn't go to work yesterday, using don selzer plus and menthol which are helping Jessica Wilson MA [facility], [facility] 04/05/2024 09:29:45 05/01/2024 text/html follow up, has n ot done well with inhalers for some time, Trelegy makes tongue stay sore, rinses mouth out after uses it, switched from Breztri to Anoro, when went on Trelegy, mouth started hurting after on Trelegy for about a year, has an area in her mouth that stays sore where dentures are, was scheduled to have surgery on thumb in March, it is work related, insurance company didn't approve it because it is work related, now having problems with left thumb as well, can't bend, Meloxicam was helping for the pain, drinks little to no water Nuha Piper MD Attn: Accounting[address] [place], [address], [facility] 05/01/2024 18:31:49 08/30/2024 text/html follow up, Nystatin helped and coating in her mouth that she had for a year has resolved, now has mucous in chest, spitting up stuff, has been for a few weeks, clear, cough, does not feel short of breath but is using Albuterol more, has supplemental oxygen, has been using rescue sometimes more than three times a day, uses Trelegy regularly, tried nicotine patch before but it made her nauseated, she thinks she may have smoked a cigarrette with it, used the patch when she was in the hospital and it did not make her sick, does not appreciate drainage in her throat Nuha Piper MD Attn: Accounting[address] , [place], [address], [facility] 08/30/2024 16:03:33 11/29/2024 text/html follow up, last week woke [...] that is itching, Nuha Piper MD Attn: Accounting[address] [facility], [place], [address], [facility] 11/29/2024 17:28:15 OBGyn Episode Ob Episode Information Episode Created Date Number of Fetuses Patient Bloodtype Patient rh Status Prepregnancy Weight lbs Domestic Partner Domestic Partner Phone Father Name Exercise Science Instructor Status 11/06/19 16 1 CLOSED Fetus Data First Name Last Name Admitted to NICU Weight (g) Sex Living Outcome Pediatric Complications Fetus ID Race Codes Race Delivery Type 3288.54 2 M Full Term [id number] Standard Vaginal Delivery Inocente Calculation Initial Inocente Date Initial Exam Date Initial Exam Provider Initial Ultrasound Date Last Menstrual Period Date Ultra Sound Weeks Gestation 0 Eighteen To Twenty Week Inocente Update Ultra Sound Date Fundal Height At Umbil Quickening Date Ultra Sound Latest Weeks Gestation Final Inocente Confirmed By Final Inocente Confirmed Date Final Inocente Date Ultra Sound Latest Days Gestation 0 0 Menstrual History Last Menstrual Date Menses Monthly On Bcp Conception Prior Menses Frequency Hcg Plus Date Menarche Onset Age Delivery Information Delivery Date Delivery Type Labor Anesthesia Weeks Gestation Incision Type Labor Labor Length Hrs Delivered By Post Complications Tubal Sterilization Discharge Date Comments 3 Regional-Sp inal 40 true Erasmo Discharge Information Feeding Method Contraceptive Method Maternal HG B and HCT Levels Ob Episode Information Episode Created Date Number of Fetuses Patient Bloodtype Patient rh Status Prepregnancy Weight lbs Domestic Partner Domestic Partner Phone Father Name Exercise Science Instructor Status 11/06/19 16 1 CLOSED Fetus Data First Name Last Name Admitted to NICU Weight (g) Sex Living Outcome Pediatric Complications Fetus ID Race Codes Race Delivery Type 3600.38 65 M Full Term 42316 Standard Vaginal Delivery Inocente Calculation Initial Inocente Date Initial Exam Date Initial Exam Provider Initial Ultrasound Date Last Menstrual Period Date Ultra Sound Weeks Gestation 0 Eighteen To Twenty Week Inocente Update Ultra Sound Date Fundal Height At Umbil Quickening Date Ultra Sound Latest Weeks Gestation Final Inocente Confirmed By Final Inocente Confirmed Date Final Inocente Date Ultra Sound Latest Days Gestation 0 0 Menstrual History Last Menstrual Date Menses Monthly On Bcp Conception Prior Menses Frequency Hcg Plus Date Menarche Onset Age Delivery Information Delivery Date Delivery Type Labor Anesthesia Weeks Gestation Incision Type Labor Labor Length Hrs Delivered By Post Complications Tubal Sterilization Discharge Date Comments 4 General 40 false Landon Discharge Information Feeding Method Contraceptive Method Maternal HG B and HCT Levels Ob Episode Information Episode Created Date Number of Fetuses Patient Bloodtype Patient rh Status Prepregnancy Weight lbs Domestic Partner Domestic Partner Phone Father Name Exercise Science Instructor Status 11/06/19 16 1 CLOSED Fetus Data First Name Last Name Admitted to NICU Weight (g) Sex Living Outcome Pediatric Complications Fetus ID Race Codes Race Delivery Type 3175.14 4 F Full Term 19620 Standard Vaginal Delivery Inocente Calculation Initial Inocente Date Initial Exam Date Initial Exam Provider Initial Ultrasound Date Last Menstrual Period Date Ultra Sound Weeks Gestation 0 Eighteen To Twenty Week Inocente Update Ultra Sound Date Fundal Height At Umbil Quickening Date Ultra Sound Latest Weeks Gestation Final Inocente Confirmed By Final Inocente Confirmed Date Final Inocente Date Ultra Sound Latest Days Gestation 0 0 Menstrual History Last Menstrual Date Menses Monthly On Bcp Conception Prior Menses Frequency Hcg Plus Date Menarche Onset Age Delivery Information Delivery Date Delivery Type Labor Anesthesia Weeks Gestation Incision Type Labor Labor Length Hrs Delivered By Post Complications Tubal Sterilization Discharge Date Comments 2 General 40 false Aster Discharge Information Feeding Method Contraceptive Method Maternal HG B and HCT Levels Ob Episode Information Episode Created Date Number of Fetuses Patient Bloodtype Patient rh Status Prepregnancy Weight lbs Domestic Partner Domestic Partner Phone Father Name Exercise Science Instructor Status 11/06/19 16 1 CLOSED Fetus Data First Name Last Name Admitted to NICU Weight (g) Sex Living Outcome Pediatric Complications Fetus ID Race Codes Race Delivery Type [phone] [phone] F Full Term [id number] Standard Vaginal Delivery Inocente Calculation Initial Inocente Date Initial Exam Date Initial Exam Provider Initial Ultrasound Date Last Menstrual Period Date Ultra Sound Weeks Gestation 0 Eighteen To Twenty Week Inocente Update Ultra Sound Date Fundal Height At Umbil Quickening Date Ultra Sound Latest Weeks Gestation Final Inocente Confirmed By Final Inocente Confirmed Date Final Inocente Date Ultra Sound Latest Days Gestation 0 0 Menstrual History Last Menstrual Date Menses Monthly On Bcp Conception Prior Menses Frequency Hcg Plus Date Menarche Onset Age Delivery Information Delivery Date Delivery Type Labor Anesthesia Weeks Gestation Incision Type Labor Labor Length Hrs Delivered By Post Complications Tubal Sterilization Discharge Date Comments 1 None 40 false Marti e Discharge Information Feeding Method Contraceptive Method Maternal HG B and HCT Levels
== END 2024-11-30 12:19 | disposition home or self-care (01) ==
PROVIDERS: PCP Emergency Medicine; Visit Provider Emergency Medicine
DX: R60.0 Localized edema (principal)
CPT/HCPCS: 71046